=== PATIENT | male | born 1960 | race Caucasian/White ===

== ENCOUNTER 2021-10-16 20:30 | Inpatient (IN) | payer MEDICAID ==
[~2021-10-16] VITALS: Ht 172.7 cm; Wt 174.6 kg
[2021-10-16] MEDS: PROPOFOL 100 ML IV ONE ×2 (20:30→20:43)
--- NOTE | 2021-10-16 20:35 | NUR ---
PT INTUBATED BY Gabriela GARDNER RT AND RN AT BEDSIDE. 24 AT [facility]. VENT SETTINGS FOLLOWED: RR 16 VOLUME 550 100% O2 PEEP 5
[2021-10-16] MEDS ORDERED: PROPOFOL 100 ML ONE ×2 (20:42→23:33)
--- NOTE | 2021-10-16 20:53 | NUR ---
NG TUBE PLACED ON LT NARE 80 CM AT 2048 XRAY CONFIRMED PLACEMENT.
[2021-10-16 20:57] LABS: HEMATOCRIT 47.3 % (36.7-47.1); MEAN CORPUSCULAR HEMOGLOBIN 31.2 uug (23.8-33.4); MEAN CORPUSCULAR VOLUME 103.2 fL (73.0-96.2); PLATELET COUNT (AUTO) 120 K/uL (152-348)
[2021-10-16] MEDS ORDERED: ATOR40TA PO (21:01)
[2021-10-16] MEDS ORDERED: ASPI81TA31 PO (21:01)
[2021-10-16] MEDS ORDERED: GABA800T11 PO (21:01)
[2021-10-16] MEDS ORDERED: BENA40TA8 PO (21:01)
[2021-10-16] MEDS ORDERED: CHOL-35 PO (21:01)
[2021-10-16] MEDS ORDERED: HYDR-3980 PO (21:01)
[2021-10-16 21:07] LABS: ETHANOL < 3 MG/DL (0-0)
--- NOTE | 2021-10-16 21:12 | NUR ---
CENTRAL LINE PLACED BY Gabriela GARDNER
[2021-10-16] MEDS: DOPamine IV DRIP 800 MG/250ML 250 ML IV PRN (21:14)
[2021-10-16] MEDS ORDERED: IV NORMAL SALINE 1000 ML BAG IV ONE (21:15)
[2021-10-16] MEDS ORDERED: levoFLOXacin 750 MG/D5W 150 ML PIGGYBACK IV ONE (21:15)
[2021-10-16] MEDS ORDERED: DOPamine IV DRIP 400 MG/250ML 250 ML ONE ×2 (21:15→23:45)
[2021-10-16 21:20] LABS: CARBON DIOXIDE 25 mmol/L (21-32); CHLORIDE 94 mmol/L (98-107); CREATININE 4.8 mg/dL (0.6-1.3); POTASSIUM 5.8 mmol/L (3.5-5.1); UREA NITROGEN, BLOOD 61 mg/dL (7-18)
--- NOTE | 2021-10-16 21:20 | NUR ---
CRITICAL LAB LACTIC ACID: 7.1 DR DUEÑAS MADE AWARE.
--- NOTE | 2021-10-16 21:22 | NUR ---
CRITICAL LAB GLUCOSE - 598 DR DUEÑAS
[2021-10-16 21:24] LABS: GLUCOSE 598 mg/dL (74-106)
[2021-10-16 21:26] LABS: ALANINE AMINOTRANSFERASE 66 U/L (16-63); ALKALINE PHOSPHATASE 126 U/L (50-136); ASPARTATE AMINOTRANSFERASE 48 U/L (15-37); BILIRUBIN,DIRECT 0.3 mg/dL (0.0-0.2); BILIRUBIN,TOTAL 0.8 mg/dL (0.2-1.0); TOTAL PROTEIN, SERUM 9.4 g/dL (6.4-8.2)
--- NOTE | 2021-10-16 21:32 | NUR ---
ASSISTED PRIMARY RN WITH DIPRIVAN DRIP, DOCUMENTED ON THE IV SPREADSHEET. AT THIS TIME, KEPT PATIENT ON 15 MCG/KG/MIN. BASED ON 380 KG OF WEIGHT. PT'S BP: 131/61. TOLERATING BOTH PROPOFOL AND DOPAMINE DRIP. Addendum: 10/17/21 at 0011 by ANNA 384 lbs/ 174 kg
[2021-10-16] MEDS ORDERED: CALCIUM GLUCONATE 1 GM/10 ML VIAL IV ONE (21:34)
--- NOTE | 2021-10-16 21:35 | NUR ---
RT CALLED TO ER WITH RUN , RESP. DISTRESS, APPROX. 20:30 , PATIENT ON LAURIE BEING AMBU BAG 100%,BY RT , THEN SEDATED BY DR DUEÑAS, AND INTUBATED WITH 7.0 ET.TUBE 24CM LIP LINE, AND PLACED ON RICCI VENT APPROX. 20:45 WITH INITIAL VENT SETTINGS, A/C 16, VT 550ML, FIO2 @ 100%, PEEP5, WITH ABG TO FOLLOW, LOW BP, SUCTIONED WHITISH TINGE SECRETIONS, ALL VENT ALARMS GOOD, VENT PLUGGED INTO RED OUTLET, CT SCAN WITH RT TRANSPORT APPROX. @ 21:45. Mario LACYP Addendum: 10/16/21 at 2139 by OPAL DESAI RT Amended: Links added.
[2021-10-16 21:42] LABS: ACETAMINOPHEN < 2.0 ug/mL (10-30)
[2021-10-16] MEDS ORDERED: INSULIN REGULAR, HUMAN 300 UNIT/3 ML VIAL ONE (21:44)
[2021-10-16] MEDS ORDERED: CALCIUM GLUCONATE IV 1 GM in IV DEXTROSE 5% 50 ML IV ONE (21:45)
[2021-10-16] MEDS ORDERED: INSULIN REGULAR, HUMAN 300 UNIT/3 ML VIAL IV ONE (21:45)
[2021-10-16 21:57] LABS: *BILIRUBIN,URIN 1+ (NEGATIVE); *BLOOD, URINE 1+ (NEGATIVE); *CLARITY,URINE CLOUDY (CLEAR); *COLOR,URINE YELLOW (YELLOW); *KETONES,URINE 1+ (NEGATIVE); *UROBILINOGEN,URINE 0.2 E.U./dl (NORMAL); LEUKOCYTE ESTERASE ,URINE NEGATIVE (NEGATIVE); NITRITE, URINE NEGATIVE (NEGATIVE); UGLUCOSE 1+ (NEGATIVE)
[2021-10-16 22:12] LABS: BACTERIA,URINE FEW /HPF (NONE SEEN); COARSE GRANULAR CASTS,URINE 0-3 /LPF; FATTY CASTS,URINE 0-3 /LPF (NONE SEEN); SQUAMOUS EPITHELIAL CELL,UR MODERATE /HPF (NONE SEEN)
[2021-10-16 22:17] LABS: *AMPHETAMINE, URINE NEGATIVE (NEGATIVE); *CANNABINOID, URINE NEGATIVE (NEGATIVE); *COCCAINE, URINE NEGATIVE (NEGATIVE); *OPIATE, URINE POSITIVE (NEGATIVE); *PHENCYCLIDINE SCREEN,URINE NEGATIVE (NEGATIVE)
[2021-10-16 22:19] LABS: THYROID STIMULATING HORMONE 1.834 mIU/mL (0.358-3.740)
[2021-10-16 22:39] LABS: ABG HCO3 22.3 mmol/L; ABG PCO2 74.4 mmHg (35.0-45.0); ABG PH 7.095 (7.350-7.450); ABG PO2 137.1 mmHg (75.0-100.0); ABG SITE RIGHT RADIAL; ABG TOTAL HEMOGLOBIN 15.2 G/dL (13.5-18.0); COHb 1.6 % (0.5-1.5); MetHb 0.4 % (0.0-1.5); O2Hb 96.3 % (94.0-97.0); VENT MODE VENT - A/C; VT, ABG 550 mL
--- NOTE | 2021-10-16 23:08 | NUR ---
[facility] CALLED FOR PANEL , ABUNDIO DAVIS.
[2021-10-16] MEDS ORDERED: levoFLOXacin 750MG/D5W 150 ML IV ONE (23:09)
--- NOTE | 2021-10-16 23:20 | NUR ---
PT PLACED ON MEDICAL SOFT RESTRAINS DUE TO SEDATIVE DRIPS AND INTUBATION.
[2021-10-16] MEDS ORDERED: PROPOFOL 100 ML IV ONE (23:30)
--- NOTE | 2021-10-16 23:49 | NUR ---
CRITICAL LAB LACTATE 3.7 DR. DUEÑAS MADE AWARE. TRENDING DOWN.
[2021-10-17] VITALS (43 sets, daily range): BP systolic 78–155; BP diastolic 45–77
--- NOTE | 2021-10-17 00:50 | NUR ---
GAVE REPORT TO KRISTIAN MANE.
[2021-10-17] MEDS ORDERED: ONDANSETRON 4 MG/2 ML VIAL IV PRN (01:15)
[2021-10-17] MEDS ORDERED: DEXTROSE 50% 50 ML DISP.SYRIN IV PRN (01:15)
[2021-10-17] MEDS ORDERED: ASPIRIN 300 MG RECTAL SUPP RC ONE (01:15)
[2021-10-17] MEDS ORDERED: REMEDY ESSENTIAL ZINC PASTE 113 GM TP PRN (01:15)
[2021-10-17] MEDS ORDERED: ACETAMINOPHEN 650 MG SUPP.RECT RC PRN (01:15)
--- NOTE | 2021-10-17 01:25 | NUR ---
PT ADMITTED TO CCU, TRANSFTERED WITH RT, ON MONITOR, SR AT THIS TIME. DOPAMINE DRIP AT 7MCG/KG/MIN AND DIPRIVAN DRIP AT 15MCG/KG/MIN. HANDED OVER CARE TO CCU NURSEALHAJI.
--- NOTE | 2021-10-17 01:35 | NUR ---
Pt. admitted to CCU , under care of Dr. MESHA HERNANDEZ Belongs List completed
[2021-10-17] MEDS: IV NS 1000 ML 1,000 ML IV PRN ×2 (02:42→19:32)
[2021-10-17] MEDS ORDERED: HEPARIN SODIUM,PORCINE 5,000 UNITS/ML VIAL IV ONE ×2 (03:15→17:15)
[2021-10-17] MEDS: HEPARIN/D5W DRIP 500 ML IV PRN ×2 (03:24→19:38)
[2021-10-17] MEDS: PROPOFOL 100 ML IV PRN ×9 (03:28→22:41)
--- NOTE | 2021-10-17 05:37 | NUR ---
FIO2 @ 70% , ADJUSTED BY ALHAJI VAZ RT AFTER 0400, SAT 96%.Mario DESAI CELL COVERER Addendum: 10/17/21 at 0538 by OPAL DESAI RT Amended: Links added.
[2021-10-17 05:59] LABS: HEMATOCRIT 39.7 % (36.7-47.1); MEAN CORPUSCULAR HEMOGLOBIN 30.7 uug (23.8-33.4); MEAN CORPUSCULAR VOLUME 94.2 fL (73.0-96.2); PLATELET COUNT (AUTO) 81 K/uL (152-348)
[2021-10-17] MEDS: BLOOD SUGAR DIAGNOSTIC 1 EACH STRIP VI SCH ×4 (05:59→23:34)
[2021-10-17] MEDS: INSULIN REGULAR, HUMAN 300 UNIT/3 ML VIAL SQ PRN ×4 (06:01→23:35)
[2021-10-17 06:18] LABS: CREATININE 3.4 mg/dL (0.6-1.3); MAGNESIUM 2.3 mg/dL (1.8-2.4); PHOSPHOROUS 5.1 mg/dL (2.5-4.9); POTASSIUM 4.7 mmol/L (3.5-5.1)
[2021-10-17 08:19] LABS: ABG BASE EXCESS -3.3 mmol/L; ABG HCO3 20.5 mmol/L; ABG PCO2 33.3 mmHg (35.0-45.0); ABG PH 7.407 (7.350-7.450); ABG PO2 88.6 mmHg (75.0-100.0); ABG SITE LEFT RADIAL; ABG TOTAL HEMOGLOBIN 13.8 G/dL (13.5-18.0); COHb 0.9 % (0.5-1.5); MetHb 0.3 % (0.0-1.5); O2Hb 95.9 % (94.0-97.0); VENT MODE VENT - A/C; VT, ABG 550 mL
[2021-10-17] MEDS: PANTOPRAZOLE SODIUM 40 MG VIAL IV SCH (08:41)
[2021-10-17] MEDS: DOPamine IV DRIP 800 MG/250ML 250 ML IV PRN ×2 (08:57→21:07)
[2021-10-17] MEDS: ASPIRIN 81 MG TAB.CHEW PO SCH (09:59)
--- NOTE | 2021-10-17 20:00 | NUR ---
vented 7.0/24 cm ac20/550/+5peep 70% fio2.tolerating vent settings saturation 97% rr 20. right femoral TLC: HEPARIN DRIP at 1200 units =next aptt 2300 no s/s of bleeding . DOPAMINE drip at 3 mcg/kg/min = hr 75,bp 91/51 Diprivan drip at 40 mcg/kg/min = RR 20,when off sedation patient moved bue and ble ,moved head slow and weak but doesn't follow commands . back on sedation propofol . NORMAL SALINE AT 75 ML/HR . LEFT L NGT -clamp only for medication will placed for net maker consult . f/c to bsd with cloudy darlin in color .
[2021-10-17] MEDS: ATORVASTATIN 40 MG TABLET PO SCH (20:13)
--- NOTE | 2021-10-17 23:10 | NUR ---
aptt =47.4 no changed on heparin drip . remains at 1200 units.next aptt at 0600
[2021-10-18] VITALS (48 sets, daily range): BP systolic 101–126; BP diastolic 50–73
--- NOTE | 2021-10-18 00:08 | NUR ---
PATIENT ON CONT RICCI VENT WITH 7.0 ET/TUBE IN PLACE 24CM LIP LINE, WITH ANCHOR FAST IN PLACE AND ROTATE Q 2 HOURS, SUCTIONED WHITISH TINGE SECRETIONS, AND SUCTION MOUTH WITH YANKAUER, AND ORAL CARE DONE, VENT SETTINGS, A/C 20, 550ML, PEEP 5, FIO2 @ 70%, MOSTLY CONTROLLED VENTILATION, NO VENT CHANGES MADE, CHANGE HME , SUCTION X 3 . ANCHOR FAST MOVE X 6 . D GISELLE LEON Addendum: 10/18/21 at 0013 by OPAL DESAI RT Amended: Links added.
[2021-10-18] MEDS: PROPOFOL 100 ML IV PRN ×12 (00:49→22:55)
--- NOTE | 2021-10-18 04:50 | NUR ---
lab came and am labs collected .
[2021-10-18] MEDS: BLOOD SUGAR DIAGNOSTIC 1 EACH STRIP VI SCH ×4 (05:08→23:39)
[2021-10-18] MEDS: INSULIN REGULAR, HUMAN 300 UNIT/3 ML VIAL SQ PRN ×4 (05:10→23:40)
[2021-10-18 05:29] LABS: HEMATOCRIT 40.8 % (36.7-47.1); MEAN CORPUSCULAR HEMOGLOBIN 30.6 uug (23.8-33.4); MEAN CORPUSCULAR VOLUME 92.9 fL (73.0-96.2); PLATELET COUNT (AUTO) 77 K/uL (152-348)
[2021-10-18 05:43] LABS: BILIRUBIN,DIRECT 0.3 mg/dL (0.0-0.2); BILIRUBIN,TOTAL 0.7 mg/dL (0.2-1.0); CREATININE 1.9 mg/dL (0.6-1.3); MAGNESIUM 2.3 mg/dL (1.8-2.4); PHOSPHOROUS 4.2 mg/dL (2.5-4.9); POTASSIUM 4.3 mmol/L (3.5-5.1); TOTAL PROTEIN, SERUM 7.2 g/dL (6.4-8.2)
--- NOTE | 2021-10-18 05:45 | NUR ---
INCREASE PROPOFOL DRIP TO 50 MCG/KG/MIN patient waking up and reaches for the ETT . BILATERAL SOFT WRIST RESTRAINTS STARTED .
--- NOTE | 2021-10-18 06:00 | NUR ---
fingerstick done and follow insulin sliding scale .
[2021-10-18 06:32] LABS: THYROID STIMULATING HORMONE 0.312 mIU/mL (0.358-3.740)
--- NOTE | 2021-10-18 06:59 | NUR ---
LAKISHA LAWLER DISCONTINUE HEPARIN DRIP AND NORMAL SALINE MAINTENANCE FLUIDS .
[2021-10-18] MEDS: DOPamine IV DRIP 800 MG/250ML 250 ML IV PRN (07:20)
[2021-10-18 07:49] LABS: ABG BASE EXCESS -0.1 mmol/L; ABG HCO3 24.6 mmol/L; ABG PH 7.406 (7.350-7.450); ABG PO2 102.7 mmHg (75.0-100.0); ABG SITE RIGHT RADIAL; COHb 0.7 % (0.5-1.5); MetHb 0.1 % (0.0-1.5); O2Hb 97.2 % (94.0-97.0); VENT MODE VENT - A/C; VT, ABG 550 mL
[2021-10-18] MEDS: ASPIRIN 81 MG TAB.CHEW PO SCH (08:03)
[2021-10-18] MEDS: PANTOPRAZOLE SODIUM 40 MG VIAL IV SCH (08:03)
--- NOTE | 2021-10-18 17:10 | NUR ---
PT REMAINS INTUBATED ON CMV. DURING SHIFT, FIO2 TITRATED TO 60%. PT IS TOLERATING VENT SETTINGS WELL, NO RESP. DISTRESS NOTED. ETT REPOSITIONED Q2. SUCTION PRN. WILL CONTINUE TO MONITOR.
--- NOTE | 2021-10-18 20:00 | NUR ---
rounds made patient in bed intubated vent setting 7.0/24 cm ac20/550/+5 fio2 60% . tolerating vent setting rr 20 saturation 98%.
[2021-10-18] MEDS: ATORVASTATIN 40 MG TABLET PO SCH (20:10)
[2021-10-18] MEDS ORDERED: MEROPENEM 500 MG in IV NORMAL SALINE 50 ML IV SCH (21:30)
[2021-10-18] MEDS ORDERED: MEROPENEM 500 MG in IV NORMAL SALINE 50 ML IV ONE (21:45)
[2021-10-18] MEDS ORDERED: MEROPENEM 500MG/NS 50ML PB ***ER PYXIS ONLY IV ONE (22:26)
[2021-10-18] MEDS: IV NORMAL SALINE 250 ML IV PRN (23:29)
[2021-10-19] VITALS (72 sets, daily range): BP systolic 101–164; BP diastolic 56–96
--- NOTE | 2021-10-19 | NUR ---
fingerstick done and follow iss .
[2021-10-19] MEDS: PROPOFOL 100 ML IV PRN ×13 (00:50→22:50)
--- NOTE | 2021-10-19 04:30 | NUR ---
am labs collected by catheter builder. xray came for portable chest .
--- NOTE | 2021-10-19 04:30 | NUR ---
am care done ,bath patient changed soiled linens and gown . perianal care done and Huitron care done .suction patient via mouth and via ett . turned and reposition . hob up .
--- NOTE | 2021-10-19 05:00 | NUR ---
discontinue bilateral wrist restraints . patient moderately sedated on propofol .
[2021-10-19] MEDS: BLOOD SUGAR DIAGNOSTIC 1 EACH STRIP VI SCH ×4 (05:14→23:31)
[2021-10-19] MEDS: INSULIN REGULAR, HUMAN 300 UNIT/3 ML VIAL SQ PRN ×4 (05:15→23:32)
[2021-10-19 05:21] LABS: HEMATOCRIT 41.7 % (36.7-47.1); MEAN CORPUSCULAR HEMOGLOBIN 30.8 uug (23.8-33.4); MEAN CORPUSCULAR VOLUME 92.8 fL (73.0-96.2); PLATELET COUNT (AUTO) 75 K/uL (152-348)
[2021-10-19 05:27] LABS: CREATININE 1.2 mg/dL (0.6-1.3); PHOSPHOROUS 3.7 mg/dL (2.5-4.9); POTASSIUM 4.4 mmol/L (3.5-5.1)
[2021-10-19 08:14] LABS: ABG HCO3 24.2 mmol/L; ABG PH 7.422 (7.350-7.450); ABG PO2 82.8 mmHg (75.0-100.0); ABG SITE RIGHT RADIAL; ABG TOTAL HEMOGLOBIN 14.5 G/dL (13.5-18.0); COHb 0.9 % (0.5-1.5); MetHb 0.1 % (0.0-1.5); O2Hb 95.5 % (94.0-97.0); VENT MODE VENT - A/C; VT, ABG 550 mL
[2021-10-19] MEDS: MEROPENEM 1 G in IV NORMAL SALINE 100 ML IV SCH ×3 (08:17→23:22)
[2021-10-19] MEDS: PANTOPRAZOLE SODIUM 40 MG VIAL IV SCH (08:18)
[2021-10-19] MEDS: ASPIRIN 81 MG TAB.CHEW PO SCH (08:18)
[2021-10-19] MEDS: DOPamine IV DRIP 800 MG/250ML 250 ML IV PRN (08:52)
[2021-10-19] MEDS: MORPHINE SULFATE 2 MG/1 ML DISP.SYRIN IV PRN (10:18)
[2021-10-19] MEDS ORDERED: VITAL AF 1.2 1,000 ML LIQUID GT PRN (19:30)
--- NOTE | 2021-10-19 19:45 | NUR ---
ROUNDS MADE PATIENT IN BED VENTED ETT 7.0/24 SETTINGS AC 16/550/+5 PEEP FIO2 60%,SUCTION VIA MOUTH AND VIA ETT WITH MODERATE SECRETION OWENS ,BLOOD TINGED IN COLOR . ORAL CARE DONE . RIGHT FEMORAL 3 LUMEN CENTRAL LINE .ON DOPAMINE DRIP ,PROPOFOL DRIP . SEE SPREADSHEET . GARCIA TO BSD WITH GOOD URINARY OUTPUT .
[2021-10-19] MEDS: ATORVASTATIN 40 MG TABLET PO SCH (20:05)
--- NOTE | 2021-10-19 21:00 | NUR ---
DUE MEDICATION GIVEN VIA NGT FLUSHED NGT TUBE HOB.
[2021-10-19] MEDS: IV NORMAL SALINE 250 ML IV PRN (23:22)
[2021-10-20] VITALS (38 sets, daily range): BP systolic 90–171; BP diastolic 55–99
--- NOTE | 2021-10-20 | NUR ---
fingerstick done and follow insulin sliding scale .
[2021-10-20] MEDS: PROPOFOL 100 ML IV PRN ×13 (00:16→22:37)
[2021-10-20] MEDS: MORPHINE SULFATE 2 MG/1 ML DISP.SYRIN IV PRN ×2 (00:26→05:18)
--- NOTE | 2021-10-20 04:00 | NUR ---
am care done ,bath patient ,Huitron care done .changed soiled linens and gown . turned and reposition with the help of xray personnel Paddy Luis cna ,Luis respiratory therapist and 2 RNS ALHAJI and DOUGLAS BARNES .
--- NOTE | 2021-10-20 04:15 | NUR ---
patient had a large bowel movement soft brownish in color .
[2021-10-20] MEDS: BLOOD SUGAR DIAGNOSTIC 1 EACH STRIP VI SCH ×4 (05:17→23:27)
[2021-10-20] MEDS: INSULIN REGULAR, HUMAN 300 UNIT/3 ML VIAL SQ PRN ×4 (05:18→23:28)
--- NOTE | 2021-10-20 05:18 | NUR ---
morphine prn given see emar patient at times noted to be coughing and breathing over the vent settings . on high dose of propofol see spreadsheet .
[2021-10-20 05:35] LABS: MEAN CORPUSCULAR HEMOGLOBIN 30.5 uug (23.8-33.4); MEAN CORPUSCULAR VOLUME 93.4 fL (73.0-96.2); PLATELET COUNT (AUTO) 82 K/uL (152-348)
[2021-10-20 05:40] LABS: CREATININE 1.1 mg/dL (0.6-1.3); MAGNESIUM 2.1 mg/dL (1.8-2.4); PHOSPHOROUS 4.2 mg/dL (2.5-4.9); POTASSIUM 4.5 mmol/L (3.5-5.1)
[2021-10-20] MEDS: MEROPENEM 1 G in IV NORMAL SALINE 100 ML IV SCH (07:33)
[2021-10-20] MEDS: PANTOPRAZOLE SODIUM 40 MG VIAL IV SCH (08:08)
[2021-10-20] MEDS: ASPIRIN 81 MG TAB.CHEW PO SCH (08:09)
--- NOTE | 2021-10-20 08:45 | NUR ---
RT PT WAS PLACE ON CPAP AT THIS TIME WILL MONITOR PT WILL DO ABG IN 1 HR. RN AWARE.
[2021-10-20 09:43] LABS: ABG BASE EXCESS -0.5 mmol/L; ABG HCO3 27.1 mmol/L; ABG PCO2 56.3 mmHg (35.0-45.0); ABG PO2 69.6 mmHg (75.0-100.0); ABG SITE RIGHT RADIAL; ABG TOTAL HEMOGLOBIN 15.1 G/dL (13.5-18.0); COHb 0.7 % (0.5-1.5); MetHb 0.3 % (0.0-1.5); O2Hb 91.3 % (94.0-97.0); VENT MODE VENT - CPAP
--- NOTE | 2021-10-20 10:00 | NUR ---
RT PT FAILED WEANING AT THIS TIME DUE TO ABG RESULTS . RESULTS GIVEN TO MD PER MD PLACE PT BACK ON AC. WT WILL CONTINUE TO MONITOR PT.
[2021-10-20] MEDS: ATORVASTATIN 40 MG TABLET PO SCH (22:37)
[2021-10-21] VITALS (24 sets, daily range): BP systolic 101–146; BP diastolic 62–91
[2021-10-21] MEDS: PROPOFOL 100 ML IV PRN ×11 (01:23→23:18)
[2021-10-21 05:16] LABS: HEMATOCRIT 39.4 % (36.7-47.1); MEAN CORPUSCULAR HEMOGLOBIN 30.5 uug (23.8-33.4); MEAN CORPUSCULAR VOLUME 93.5 fL (73.0-96.2); PLATELET COUNT (AUTO) 75 K/uL (152-348)
[2021-10-21 05:26] LABS: CREATININE 1.2 mg/dL (0.6-1.3); PHOSPHOROUS 3.5 mg/dL (2.5-4.9); POTASSIUM 4.2 mmol/L (3.5-5.1); TOTAL PROTEIN, SERUM 7.1 g/dL (6.4-8.2)
[2021-10-21] MEDS: INSULIN REGULAR, HUMAN 300 UNIT/3 ML VIAL SQ PRN ×3 (05:44→17:29)
[2021-10-21] MEDS: BLOOD SUGAR DIAGNOSTIC 1 EACH STRIP VI SCH ×3 (05:46→17:26)
--- NOTE | 2021-10-21 07:10 | NUR ---
Received pt. on ventilator A/C ETT 7.0 24LL of 16, tv 550, Peep +5, and FIO2 60%. On sedatives propofol running at 40mcg/kg/min. Neuro-reed BERTHA an withdrawing to light painful stimuli. NG-T clamped. Patient received with BUE soft restrains adjusted to wrist area but not secured to bed. Restrains removed at this time. TLS to right femoral area patent. Huitron to gravity with darkish slightly sedimented urine noted.
--- NOTE | 2021-10-21 07:15 | NUR ---
Upon removal of BUE wrist restrains a large blister noted to left wrist. picture taken area cleaned with soap and water and left open to air. BUE elevated above heart level.
--- NOTE | 2021-10-21 07:30 | NUR ---
At this time with propofol down to 20mcg/kg/min CPAP and weaning parameters initiated, patient already noted to be in labor breathing, with use of accessory muscles. Patient coached to take deep breaths, with RT at bedside. pt. only lasted about 15-20 min. As noted, unable to get large volume tachypneic, with labor breathing. Saturation of 94% with heart rate in the 98-100, sbp within desired limits. After failing weaning attempts pt. placed back on A/C mode.
--- NOTE | 2021-10-21 07:45 | NUR ---
SPONTANEOUS BREATHING TRIALS ATTEMPTED. @0730 VENT CHANGES MADE PER ORDER, CPAP 5, PSV 10, 60% FIO2. PT IS ABLE TO OPEN EYES BUT UNABLE TO FOLLOW COMMANDS. PT ENCOURAGED TO TAKE SLOW DEEP BREATHS. VOLUMES BETWEEN 200-300'S OBSERVED, TACHYPNEA, INCREASED WOB, ACCESSORY MUSCLES BEING USED NOTED. ABG DRAWN ON CPAP. PT PLACED BACK ON PREVIOUS A/C SETTINGS, RN NOTIFIED. WILL CONTINUE TO MONITOR AND FOLLOW CURRENT RESP. TREATMENTS ORDERED.
[2021-10-21 08:16] LABS: ABG BASE EXCESS 0.8 mmol/L; ABG HCO3 27.3 mmol/L; ABG PCO2 51.4 mmHg (35.0-45.0); ABG PH 7.343 (7.350-7.450); ABG PO2 76.6 mmHg (75.0-100.0); ABG SITE RIGHT RADIAL; ABG TOTAL HEMOGLOBIN 13.7 G/dL (13.5-18.0); COHb 1.1 % (0.5-1.5); MetHb 0.3 % (0.0-1.5); O2Hb 93.7 % (94.0-97.0); VENT MODE VENT - CPAP
[2021-10-21] MEDS ORDERED: ALBUMIN HUMAN 25% 100 ML IV SCH (09:00)
--- NOTE | 2021-10-21 09:00 | NUR ---
Pulmonary services Dr. Mart in the unit to examine pt. report given, and orders to continue with care plan received.
--- NOTE | 2021-10-21 09:00 | NUR ---
FIO2 decreased down to 50%.
[2021-10-21] MEDS: PANTOPRAZOLE ORAL SUSPENSION 40 MG SUSPDR.PKT GT SCH (09:06)
[2021-10-21] MEDS: ASPIRIN 81 MG TAB.CHEW PO SCH (09:06)
--- NOTE | 2021-10-21 09:30 | NUR ---
Patient seen by manager talent acquisition Dr. Jimenez report given and orders to continue with care plan received and implemented.
[2021-10-21] MEDS: ALBUMIN HUMAN 25% 100 ML IV SCH ×3 (09:48→19:42)
[2021-10-21] MEDS: FUROSEMIDE 40 MG/4 ML VIAL IV SCH ×2 (11:10→23:03)
[2021-10-21] MEDS ORDERED: VITAL AF 1.2 1,000 ML LIQUID GT PRN (14:00)
[2021-10-21] MEDS: PROTEIN SUPPLEMENT (PROSTAT) 30 ML LIQUID PO SCH (17:18)
--- NOTE | 2021-10-21 17:20 | NUR ---
PT REMAINS INTUBATED ON CMV, FIO2 TITRATED TO 30% DURING SHIFT. PT IS TOLERATING VENT SETTINGS WELL, SPO2 AND RESPIRATIONS WNL. NO RESP. DISTRESS NOTED. ETT REPOSITIONED Q2. SUCTION PRN. WILL CONTINUE TO MONITOR AND FOLLOW RESP. TREATMENTS ORDERED.
--- NOTE | 2021-10-21 18:05 | NUR ---
Left pt. on ventilator A/C mode same setting with FIO2 at 30% successfully titrated by RT. Adequately sedated propofol running at 50mcg/kg/min., but withdraws from painful stimuli and BERTHA. No tachypnea or labor breathing, with saturation above 95%. Tolerating diet well via Ng-T at 20ml/hr with no residuals, no n/v/or diarrhea. Huitron to gravity. IV line patent. patient remained afebrile post tylenol this morning. Will endorse for continuity of care.
[2021-10-21] MEDS: ATORVASTATIN 40 MG TABLET PO SCH (19:31)
--- NOTE | 2021-10-21 21:30 | NUR ---
viviana ID in the unit to see patients updated.
[2021-10-22] VITALS (24 sets, daily range): BP systolic 113–148; BP diastolic 65–83
[2021-10-22] MEDS: ACETAMINOPHEN 650 MG/20.3 ML LIQUID UDC GT PRN (00:04)
[2021-10-22] MEDS: BLOOD SUGAR DIAGNOSTIC 1 EACH STRIP VI SCH ×5 (00:05→23:39)
[2021-10-22] MEDS: INSULIN REGULAR, HUMAN 300 UNIT/3 ML VIAL SQ PRN ×5 (00:06→23:40)
[2021-10-22] MEDS: PROPOFOL 100 ML IV PRN ×11 (01:22→23:39)
--- NOTE | 2021-10-22 03:15 | NUR ---
no albumin left in pyxis. fertilizer supervisor informed pending delivery of albumin
[2021-10-22] MEDS: ALBUMIN HUMAN 25% 100 ML IV SCH (03:32)
[2021-10-22] MEDS ORDERED: ALBUMIN HUMAN 25% 50 ML ONE ×2 (03:38)
[2021-10-22 05:42] LABS: HEMATOCRIT 37.5 % (36.7-47.1); MEAN CORPUSCULAR HEMOGLOBIN 30.4 uug (23.8-33.4); MEAN CORPUSCULAR VOLUME 93.3 fL (73.0-96.2); PLATELET COUNT (AUTO) 80 K/uL (152-348)
[2021-10-22 05:59] LABS: CREATININE 1.2 mg/dL (0.6-1.3); MAGNESIUM 1.8 mg/dL (1.8-2.4); PHOSPHOROUS 3.6 mg/dL (2.5-4.9); POTASSIUM 3.8 mmol/L (3.5-5.1)
--- NOTE | 2021-10-22 06:27 | NUR ---
patient stable throughout night. continued lasix and albumin as ordered. patient diuresed well and patient had one large BM. tolerating tube feeds increased rate to 30 ml/hr.
--- NOTE | 2021-10-22 06:33 | NUR ---
plan for weaning will decrease sedation at 0700.
[2021-10-22] MEDS ORDERED: POTASSIUM CHLORIDE 20 MEQ POWDER PACKET GT ONE (07:30)
--- NOTE | 2021-10-22 07:30 | NUR ---
Pt placed on CPAP Trial and lori well. Will continue to monitor. RN aware. 0820 Cpap Trial failed. ABG done. And placed back onto settings of AC 16, Vt 550, PEEP +5, 35% Will continue to monitor
[2021-10-22] MEDS: PROTEIN SUPPLEMENT (PROSTAT) 30 ML LIQUID PO SCH ×3 (07:32→17:01)
[2021-10-22] MEDS: MAGNESIUM SULFATE/D5W 100 ML IV SCH ×2 (07:47→08:31)
[2021-10-22] MEDS: ASPIRIN 81 MG TAB.CHEW PO SCH (08:01)
[2021-10-22] MEDS: PANTOPRAZOLE ORAL SUSPENSION 40 MG SUSPDR.PKT GT SCH (08:01)
[2021-10-22] MEDS: FUROSEMIDE 40 MG/4 ML VIAL IV SCH ×2 (08:31→20:48)
[2021-10-22 08:36] LABS: ABG BASE EXCESS 1.6 mmol/L; ABG HCO3 28.9 mmol/L; ABG PCO2 57.2 mmHg (35.0-45.0); ABG PH 7.322 (7.350-7.450); ABG PO2 45.5 mmHg (75.0-100.0); ABG SITE LEFT RADIAL; ABG TOTAL HEMOGLOBIN 14.3 G/dL (13.5-18.0); COHb 0.8 % (0.5-1.5); CPAP,BG 12 cmH20; MetHb 0.3 % (0.0-1.5); O2Hb 76.5 % (94.0-97.0); VENT MODE CPAP
--- NOTE | 2021-10-22 19:00 | NUR ---
received patient sedated , morbidly obese , propofol at 50 mcg , vent setting , ac 16 tv 550 p 5 35% fio2 , ngt tf vital af 30 ml /hr , placement , no residual noted , blister , left hand noted , central line right femoral intact , no fever, sr , hr 79 , rmc013 /69 , 94 % 16 rr
--- NOTE | 2021-10-22 20:00 | NUR ---
tf decreased to 20 ml /hr goal rate as per current order
[2021-10-22] MEDS: ATORVASTATIN 40 MG TABLET PO SCH (20:48)
[2021-10-22] MEDS: INSULIN GLARGINE,HUM 300 UNITS/3 ML CARTRIDGE SQ SCH (21:04)
[2021-10-23] VITALS (24 sets, daily range): BP systolic 135–176; BP diastolic 75–111
--- NOTE | 2021-10-23 00:09 | NUR ---
PATIENT ON CONT RICCI VENT WITH 7.0ET/TUBE IN PLACE , 24CM LIP LINE, MOVE ANCHOR FAST Q2 HOURS, SUCTIONED LIGHT PALE YELL TINGE SECRETIONS, AND SUCTION MOUTH WITH OMAR FIGUEROA, PT ASSIST AT TIMES, VENT SETTINGS, A/C 16, 550ML, PEEP5, FIO2 @ 30%, NO VENT CHANGES MADE, ALL VENT ALARMS GOOD, VENT PLUGGED INTO RED WALL OUT LETMickey LACYP Addendum: 10/23/21 at 0012 by OPAL DESAI RT Amended: Links added.
[2021-10-23] MEDS: PROPOFOL 100 ML IV PRN ×3 (01:23→07:31)
[2021-10-23 05:07] LABS: HEMATOCRIT 39.9 % (36.7-47.1); MEAN CORPUSCULAR HEMOGLOBIN 30.8 uug (23.8-33.4); MEAN CORPUSCULAR VOLUME 91.9 fL (73.0-96.2); PLATELET COUNT (AUTO) 88 K/uL (152-348)
[2021-10-23 05:42] LABS: BILIRUBIN,DIRECT 0.7 mg/dL (0.0-0.2); BILIRUBIN,TOTAL 1.3 mg/dL (0.2-1.0); CREATININE 1.2 mg/dL (0.6-1.3); MAGNESIUM 2.1 mg/dL (1.8-2.4); PHOSPHOROUS 3.2 mg/dL (2.5-4.9); POTASSIUM 3.8 mmol/L (3.5-5.1); TOTAL PROTEIN, SERUM 8.2 g/dL (6.4-8.2)
--- NOTE | 2021-10-23 06:44 | NUR ---
propofol at 15 mcg , for cpap trial this morning , same vent settings , moderate secretion suctioned orally , blisters left hand and some bruising and light scratches noted on left hand and arm , some bruising noted on medial upper back , central line right femoral and arias intact
[2021-10-23] MEDS: BLOOD SUGAR DIAGNOSTIC 1 EACH STRIP VI SCH ×4 (06:52→23:30)
[2021-10-23] MEDS: INSULIN REGULAR, HUMAN 300 UNIT/3 ML VIAL SQ PRN ×4 (06:53→23:30)
--- NOTE | 2021-10-23 07:00 | NUR ---
Received pt. on A/C of 16, TV550, Peep+5, and FIO2 35%. ETT 7.5, LL24. Patient lightly sedated with propofol running at 15mcg/kg/min,. at this time lowered to 10mcg/kg/min in preparation for CPAP trial at 0800. Hemodynamically stable with sbp wnl. NG-T in place, arias to gravity. IV line patent. Will continue to monitor.
--- NOTE | 2021-10-23 08:00 | NUR ---
Propofol down to 10mcg/kg/min and CPAP trial started PSV= 12, Brandan +5, and FIO2 35%. patient awake opening eyes spontaneously. RR in the low 30's. Will continue to monitor
[2021-10-23] MEDS: ASPIRIN 81 MG TAB.CHEW PO SCH (08:49)
[2021-10-23] MEDS: FUROSEMIDE 40 MG/4 ML VIAL IV SCH ×2 (08:49→20:15)
[2021-10-23] MEDS: PANTOPRAZOLE ORAL SUSPENSION 40 MG SUSPDR.PKT GT SCH (08:49)
[2021-10-23] MEDS: PROTEIN SUPPLEMENT (PROSTAT) 30 ML LIQUID PO SCH ×3 (08:50→17:34)
[2021-10-23 09:05] LABS: ABG BASE EXCESS 4.3 mmol/L; ABG HCO3 29.8 mmol/L; ABG PCO2 47.6 mmHg (35.0-45.0); ABG PH 7.415 (7.350-7.450); ABG PO2 62.5 mmHg (75.0-100.0); ABG SITE LEFT RADIAL; ABG TOTAL HEMOGLOBIN 14.9 G/dL (13.5-18.0); COHb 1.4 % (0.5-1.5); MetHb 0.2 % (0.0-1.5); O2Hb 89.9 % (94.0-97.0); VENT MODE VENT - CPAP
--- NOTE | 2021-10-23 09:30 | NUR ---
Patient seen by social security assessor Dr. Mart report given and after assessing pt. orders to extubated with stand by bipap and orders to reintubate pt. if needed it received.
[2021-10-23] MEDS ORDERED: DC PROPOFOL ONCE EXTUBATED XX PRN (10:00)
--- NOTE | 2021-10-23 10:39 | NUR ---
RT at bedside and at this time pt. extubated, and placed on 4L. NC. low sinus tachycardia 106, sbp of 177/138. patient noted to be snoring with saturation of 93-94%. RR in the upper 30's. will continue to monitor.
--- NOTE | 2021-10-23 11:10 | NUR ---
Patient with saturation in the low 80's. drowsy, and unable to cough up secretions, pulmonary toileting rendered by RT. Rahul who remains at bedside. saturation remained in the low 80's. At this time pt. placed on BIPAP 15/5 Rate of 16 and FIO2 of 50% and titrated down to 40%.,as pt. tolerated.
[2021-10-23] MEDS: MORPHINE SULFATE 2 MG/1 ML DISP.SYRIN IV PRN ×2 (13:59→23:54)
[2021-10-23] MEDS: VITAL AF 1.2 1,000 ML LIQUID GT PRN (17:41)
--- NOTE | 2021-10-23 19:00 | NUR ---
Received report. Patient is alert, awake, open eyes spontaneously. NAD. Simple mask @8LPM, O2 sat 96%. ST on the monitor, 103bpm. NG TF Vital AF @30mls/hr, no gastric residual noted. R femoral TLC heplock. Huitron catheter draining well to gravity. Will continue to monitor closely.
[2021-10-23] MEDS: ATORVASTATIN 40 MG TABLET PO SCH (20:15)
[2021-10-23] MEDS: INSULIN GLARGINE,HUM 300 UNITS/3 ML CARTRIDGE SQ SCH (20:28)
--- NOTE | 2021-10-23 21:00 | NUR ---
Placed on Bipap c/o RT Andrey, tolerating well. NAD.
--- NOTE | 2021-10-23 21:00 | NUR ---
Pt now placed on BIPAP settings of IPAP 15, EPAP 5, set resp. rate 16 and FIO2-40%. No resp. distress noted. Pt appears to be tolerating BIPAP settings well. V-60 alarm parameters have been checked and remain audible. BVM is at bedside. Pt to be monitored throughout the duration of the shift. (Pt was previously on 8LSM).
[2021-10-23] MEDS: hydrALAZINE HCL 20 MG/1 ML VIAL IV PRN (21:15)
[2021-10-24] VITALS (24 sets, daily range): BP systolic 111–161; BP diastolic 59–100
--- NOTE | 2021-10-24 00:29 | NUR ---
Patient appears to be restless on bipap machine, facial grimacing noted, bipap facemask comes out as patient moves head from side to side. Repositioned bipap facemask. JT=630, JZ=066/111, Morphine 2mg given as ordered. Will continue to monitor closely.
[2021-10-24 05:25] LABS: HEMATOCRIT 46.3 % (36.7-47.1); MEAN CORPUSCULAR HEMOGLOBIN 30.1 uug (23.8-33.4); MEAN CORPUSCULAR VOLUME 91.8 fL (73.0-96.2); PLATELET COUNT (AUTO) 104 K/uL (152-348)
[2021-10-24 05:31] LABS: ABG BASE EXCESS 7.1 mmol/L; ABG PCO2 45.4 mmHg (35.0-45.0); ABG PH 7.466 (7.350-7.450); ABG PO2 89.7 mmHg (75.0-100.0); ABG SITE LEFT RADIAL; ABG TOTAL HEMOGLOBIN 16.3 G/dL (13.5-18.0); COHb 1.2 % (0.5-1.5); MetHb 0.3 % (0.0-1.5); O2Hb 95.9 % (94.0-97.0); VENT MODE BIPAP 15/5
[2021-10-24 05:34] LABS: CREATININE 1.3 mg/dL (0.6-1.3); MAGNESIUM 1.8 mg/dL (1.8-2.4); PHOSPHOROUS 3.1 mg/dL (2.5-4.9); POTASSIUM 3.4 mmol/L (3.5-5.1)
[2021-10-24] MEDS: BLOOD SUGAR DIAGNOSTIC 1 EACH STRIP VI SCH ×3 (05:44→17:21)
[2021-10-24] MEDS: INSULIN REGULAR, HUMAN 300 UNIT/3 ML VIAL SQ PRN ×3 (05:45→17:22)
--- NOTE | 2021-10-24 06:20 | NUR ---
Pt placed back on 8LSM. No resp. distress noted. RN SM aware and notified.
--- NOTE | 2021-10-24 06:23 | NUR ---
Bipap off and placed on simple mask @8LPM c/o RT Andrey, O2 sat 98%.
--- NOTE | 2021-10-24 06:37 | NUR ---
Left patient awake, NAD, VSS, on simple mask @8LPM, O2 sat 100%. ST on the monitor, 100bpm. NG TF Vital AF @50mls/hr, off [id number]. R femoral TLC heplock. Huitron catheter draining well to gravity. Endorsed.
[2021-10-24] MEDS ORDERED: POTASSIUM CHLORIDE 20 MEQ POWDER PACKET GT ONE (07:45)
[2021-10-24] MEDS: VITAL AF 1.2 1,000 ML LIQUID GT PRN ×2 (08:00→10:04)
[2021-10-24] MEDS: ASPIRIN 81 MG TAB.CHEW PO SCH (08:23)
[2021-10-24] MEDS: FUROSEMIDE 20 MG/2 ML VIAL IVP SCH ×2 (08:23→20:23)
[2021-10-24] MEDS: PANTOPRAZOLE ORAL SUSPENSION 40 MG SUSPDR.PKT GT SCH (08:24)
[2021-10-24] MEDS: POTASSIUM CHLORIDE 50 ML IV SCH ×2 (08:24→09:27)
[2021-10-24] MEDS: PROTEIN SUPPLEMENT (PROSTAT) 30 ML LIQUID PO SCH ×3 (08:24→16:19)
[2021-10-24] MEDS: METOPROLOL TARTRATE 50 MG TABLET PO SCH ×2 (08:25→20:23)
[2021-10-24] MEDS ORDERED: FUROSEMIDE 40 MG/4 ML VIAL IV SCH (09:00)
[2021-10-24] MEDS: ALBUTEROL SULFATE 2.5 MG/ 0.5 ML NEBU NEB SCH ×5 (11:27→22:35)
[2021-10-24] MEDS: IPRATROPIUM BROMIDE 0.5 MG/2.5 ML NEBU NEB SCH ×4 (11:42→22:35)
[2021-10-24] MEDS: ACETYLCYSTEINE 20% 800 MG/4 ML VIAL NEB SCH ×2 (15:38→22:35)
[2021-10-24] MEDS: ATORVASTATIN 40 MG TABLET PO SCH (20:22)
[2021-10-24] MEDS ORDERED: INSULIN GLARGINE,HUM 300 UNITS/3 ML CARTRIDGE SQ SCH (21:00)
--- NOTE | 2021-10-24 21:45 | NUR ---
Received pt on N/C at 4LPM and due to MD order placed him back on BiPAP at [facility] with the following settings of I-15, E-5, PS-10, RR-16, FIO2-40%. Large full face mask adjusted for pt comfort. Present settings pt tolerated well. RN Roberto aware. Alarms on and audible.
[2021-10-25] VITALS (20 sets, daily range): BP systolic 94–178; BP diastolic 38–93
[2021-10-25] MEDS: BLOOD SUGAR DIAGNOSTIC 1 EACH STRIP VI SCH ×4 (00:09→17:22)
[2021-10-25] MEDS: INSULIN REGULAR, HUMAN 300 UNIT/3 ML VIAL SQ PRN ×4 (00:11→17:25)
--- NOTE | 2021-10-25 05:12 | NUR ---
Pt off BiPAP and placed on 4LPM N/C. RN Roberto aware.
[2021-10-25 05:36] LABS: HEMATOCRIT 44.2 % (36.7-47.1); MEAN CORPUSCULAR HEMOGLOBIN 30.4 uug (23.8-33.4); MEAN CORPUSCULAR VOLUME 92.3 fL (73.0-96.2); PLATELET COUNT (AUTO) 112 K/uL (152-348)
[2021-10-25 05:45] LABS: CREATININE 1.5 mg/dL (0.6-1.3); PHOSPHOROUS 3.9 mg/dL (2.5-4.9); POTASSIUM 3.7 mmol/L (3.5-5.1)
[2021-10-25] MEDS: IPRATROPIUM BROMIDE 0.5 MG/2.5 ML NEBU NEB SCH ×4 (07:46→21:54)
[2021-10-25] MEDS: ALBUTEROL SULFATE 2.5 MG/ 0.5 ML NEBU NEB SCH ×4 (07:46→21:55)
[2021-10-25] MEDS: ACETYLCYSTEINE 20% 800 MG/4 ML VIAL NEB SCH ×2 (07:47→15:05)
[2021-10-25 08:00] LABS: ABG BASE EXCESS 5.1 mmol/L; ABG HCO3 33.4 mmol/L; ABG PH 7.329 (7.350-7.450); ABG PO2 60.2 mmHg (75.0-100.0); ABG SITE RIGHT RADIAL; ABG TOTAL HEMOGLOBIN 15.7 G/dL (13.5-18.0); COHb 1.1 % (0.5-1.5); MetHb 0.3 % (0.0-1.5); O2Hb 85.6 % (94.0-97.0); VENT MODE Nasal Cannula
--- NOTE | 2021-10-25 08:00 | NUR ---
received pt in bed resting on 4L NC. Pt confused, pt becomes sinus tachy on agitation. pt has thick begum mucous, ABGs drawn this morning. Pt has NG tube in place running vital Af at 55, goal of 65. Huitron in place, draining darlin urine, reports of 1 BM last night. IV access on right femoral triple lumen.
--- NOTE | 2021-10-25 08:15 | NUR ---
pt placed on bipap, will continue to monitor.
[2021-10-25] MEDS: PROTEIN SUPPLEMENT (PROSTAT) 30 ML LIQUID PO SCH ×3 (08:58→17:19)
[2021-10-25] MEDS: ASPIRIN 81 MG TAB.CHEW PO SCH (08:59)
[2021-10-25] MEDS: PANTOPRAZOLE ORAL SUSPENSION 40 MG SUSPDR.PKT GT SCH (09:00)
[2021-10-25] MEDS: METOPROLOL TARTRATE 50 MG TABLET PO SCH ×2 (09:00→20:25)
[2021-10-25] MEDS: VITAL AF 1.2 1,000 ML LIQUID GT PRN (09:01)
[2021-10-25] MEDS: IV NORMAL SALINE 250 ML IV PRN (10:54)
[2021-10-25] MEDS: NUTRISOURCE FIBER 4 GM PACKET GT SCH (17:19)
--- NOTE | 2021-10-25 19:00 | NUR ---
received patient awake , restless , family member at bedside , o2 nc 4 l , ngt , placement checked , no residual , vital af running at 55 ml/hr , right femoral centra line intact , arias intact , no fever , blister on the left hand already popped , covered with mepilex rr 28 sbp 16/38 , hr 96 , o2 saturation 96 %
[2021-10-25] MEDS: ATORVASTATIN 40 MG TABLET PO SCH (20:25)
[2021-10-25] MEDS: ENOXAPARIN SODIUM 40 MG/0.4 ML DISP.SYRIN SQ SCH (20:26)
[2021-10-25] MEDS ORDERED: INSULIN GLARGINE,HUM 300 UNITS/3 ML CARTRIDGE SQ SCH (21:00)
[2021-10-25] MEDS: MORPHINE SULFATE 2 MG/1 ML DISP.SYRIN IV PRN (21:19)
[2021-10-26] VITALS (23 sets, daily range): BP systolic 116–172; BP diastolic 67–102
[2021-10-26] MEDS: ACETYLCYSTEINE 20% 800 MG/4 ML VIAL NEB SCH ×3 (00:01→15:21)
[2021-10-26] MEDS: IPRATROPIUM BROMIDE 0.5 MG/2.5 ML NEBU NEB SCH ×5 (00:03→15:21)
[2021-10-26] MEDS: ALBUTEROL SULFATE 2.5 MG/ 0.5 ML NEBU NEB SCH ×5 (00:03→15:21)
[2021-10-26] MEDS: BLOOD SUGAR DIAGNOSTIC 1 EACH STRIP VI SCH ×5 (00:22→23:56)
[2021-10-26] MEDS: INSULIN REGULAR, HUMAN 300 UNIT/3 ML VIAL SQ PRN ×5 (00:23→23:57)
--- NOTE | 2021-10-26 00:41 | NUR ---
PATIENT REMAINS ON O2 @ 4L/M NC , WITH S/B BI/PAP PRN, PT SEMI AWAKE .DOMINATES MOVING RIGHT ARM AND RIGHT LEG, HELP NURSING LIFT PATIENT, NEB INLINE RXS, SUCTION MOUTH WITH REYNALDO FIGUEROA BEFORE 0700. Mario DESAI RCP Addendum: 10/26/21 at 0043 by OPAL DESAI RT Amended: Links added.
[2021-10-26] MEDS: MORPHINE SULFATE 2 MG/1 ML DISP.SYRIN IV PRN ×2 (04:11→23:08)
[2021-10-26 05:34] LABS: HEMATOCRIT 40.6 % (36.7-47.1); MEAN CORPUSCULAR VOLUME 93.6 fL (73.0-96.2); PLATELET COUNT (AUTO) 100 K/uL (152-348)
[2021-10-26 05:40] LABS: CREATININE 1.8 mg/dL (0.6-1.3); PHOSPHOROUS 3.7 mg/dL (2.5-4.9); POTASSIUM 3.3 mmol/L (3.5-5.1)
[2021-10-26 05:43] LABS: NEUTROPHILS % (MANUAL) 0 % (42-75)
[2021-10-26 05:58] LABS: ABG BASE EXCESS 8.3 mmol/L; ABG HCO3 33.4 mmol/L; ABG PCO2 47.9 mmHg (35.0-45.0); ABG PH 7.461 (7.350-7.450); ABG PO2 86.2 mmHg (75.0-100.0); ABG SITE LEFT RADIAL; COHb 1.3 % (0.5-1.5); MetHb 0.1 % (0.0-1.5); O2Hb 95.8 % (94.0-97.0); VENT MODE Nasal Cannula
--- NOTE | 2021-10-26 06:53 | NUR ---
patient is on 4l nc , restless , central line dressing changed , intact , arias intact ,suctioned with moderate amount of secretion, no bowel movement ,
[2021-10-26] MEDS: PROTEIN SUPPLEMENT (PROSTAT) 30 ML LIQUID PO SCH ×3 (08:04→18:09)
[2021-10-26] MEDS: NUTRISOURCE FIBER 4 GM PACKET GT SCH ×3 (08:04→18:08)
[2021-10-26] MEDS: PANTOPRAZOLE ORAL SUSPENSION 40 MG SUSPDR.PKT GT SCH (08:04)
[2021-10-26] MEDS: METOPROLOL TARTRATE 50 MG TABLET PO SCH ×2 (08:05→21:11)
[2021-10-26] MEDS: FUROSEMIDE 40 MG TABLET PO SCH (08:05)
[2021-10-26] MEDS: ASPIRIN 81 MG TAB.CHEW PO SCH (08:05)
[2021-10-26] MEDS ORDERED: POTASSIUM CHLORIDE 20 MEQ POWDER PACKET GT ONE (09:15)
[2021-10-26] MEDS ORDERED: ZIPRASIDONE MESYLATE 20 MG VIAL IM ONE ×2 (10:30→10:45)
--- NOTE | 2021-10-26 11:15 | NUR ---
uneventful transport to CT scan of head. patient is able to tolerate transport.
--- NOTE | 2021-10-26 18:00 | NUR ---
replaced ngt. repeat xray for placement. lantus increased per orders blood sugars >300. will inform cage shift manager for plan of night bipap as ordered per dr. juárez.
[2021-10-26] MEDS ORDERED: INSULIN GLARGINE,HUM 300 UNITS/3 ML CARTRIDGE SQ SCH (21:00)
[2021-10-26] MEDS: ENOXAPARIN SODIUM 40 MG/0.4 ML DISP.SYRIN SQ SCH (21:09)
[2021-10-26] MEDS: ATORVASTATIN 40 MG TABLET PO SCH (21:10)
[2021-10-27] VITALS (22 sets, daily range): BP systolic 115–185; BP diastolic 63–129
[2021-10-27] MEDS: ALBUTEROL SULFATE 2.5 MG/ 0.5 ML NEBU NEB SCH ×5 (00:03→22:38)
--- NOTE | 2021-10-27 02:15 | NUR ---
PATIENT ON O2 @ 4L/M NC , PT PLACED ON BI/PAP APPROX. 00:[address] MODE, SETTINGS, 15/5, R16, FIO2 @ 40% WITH FULL LARGE MASK, PT MOVING AROUND AT TIMES, GELL PLACED BEHIND MASK, TO PREVENT TISSUE BREAKDOWN ,SLIGHTLY RED BEFORE PT ON BI/PAP, NURSE AWARE, PT DOING OK, RESTING AT TIMES, BUT DOES MOVE AROUND AT TIMES. SAT 90-95% APPROX. Mario LACYP Addendum: 10/27/21 at 0218 by OPAL DESAI RT Amended: Links added.
[2021-10-27 05:21] LABS: MEAN CORPUSCULAR HEMOGLOBIN 29.9 uug (23.8-33.4); MEAN CORPUSCULAR VOLUME 95.7 fL (73.0-96.2); PLATELET COUNT (AUTO) 103 K/uL (152-348)
[2021-10-27] MEDS: INSULIN REGULAR, HUMAN 300 UNIT/3 ML VIAL SQ PRN ×4 (05:32→23:32)
[2021-10-27] MEDS: BLOOD SUGAR DIAGNOSTIC 1 EACH STRIP VI SCH ×4 (05:33→23:30)
[2021-10-27 05:35] LABS: CREATININE 1.8 mg/dL (0.6-1.3); MAGNESIUM 2.6 mg/dL (1.8-2.4); PHOSPHOROUS 3.5 mg/dL (2.5-4.9)
--- NOTE | 2021-10-27 07:00 | NUR ---
Received pt. on Nasal canula 4 liters with saturation within desired limits. Neuro-reed restless agitated not following commands with gargle speech. Hemodynamically stable elevated SBP for which will be medicated as ordered. Ng-T in place feeding to be resumed. Huitron to gravity. IV line patent. Will continue with care plan. Safety measures implemented.
[2021-10-27] MEDS: ACETYLCYSTEINE 20% 800 MG/4 ML VIAL NEB SCH ×5 (07:17→23:30)
[2021-10-27] MEDS: IPRATROPIUM BROMIDE 0.5 MG/2.5 ML NEBU NEB SCH ×4 (07:17→22:38)
[2021-10-27] MEDS: PROTEIN SUPPLEMENT (PROSTAT) 30 ML LIQUID PO SCH ×3 (08:02→16:39)
[2021-10-27] MEDS: PANTOPRAZOLE ORAL SUSPENSION 40 MG SUSPDR.PKT GT SCH (08:02)
[2021-10-27] MEDS: NUTRISOURCE FIBER 4 GM PACKET GT SCH ×3 (08:02→16:39)
[2021-10-27] MEDS: FUROSEMIDE 40 MG TABLET PO SCH (08:03)
[2021-10-27] MEDS: METOPROLOL TARTRATE 50 MG TABLET PO SCH ×2 (08:03→20:39)
[2021-10-27] MEDS: ASPIRIN 81 MG TAB.CHEW PO SCH (08:03)
[2021-10-27 08:04] LABS: ABG BASE EXCESS 7.6 mmol/L; ABG HCO3 33.4 mmol/L; ABG PCO2 50.5 mmHg (35.0-45.0); ABG PH 7.438 (7.350-7.450); ABG PO2 60.8 mmHg (75.0-100.0); ABG SITE RIGHT BRACHIAL; ABG TOTAL HEMOGLOBIN 15.2 G/dL (13.5-18.0); MetHb 0.3 % (0.0-1.5); O2Hb 90.5 % (94.0-97.0); VENT MODE Nasal Cannula
--- NOTE | 2021-10-27 09:00 | NUR ---
Patient seen by pulmonary services Dr. Mart report given see orders hx.
[2021-10-27] MEDS: hydrALAZINE HCL 20 MG/1 ML VIAL IV PRN (09:03)
[2021-10-27] MEDS ORDERED: INSULIN REGULAR, HUMAN 300 UNIT/3 ML VIAL SQ ONE ×2 (12:00→16:45)
--- NOTE | 2021-10-27 12:00 | NUR ---
Attending N.P. called for blood sugar of 467 orders received and implemented.
[2021-10-27] MEDS: VITAL AF 1.2 1,000 ML LIQUID GT PRN ×2 (12:45→17:25)
[2021-10-27] MEDS: ZIPRASIDONE MESYLATE 20 MG VIAL IM PRN (13:38)
--- NOTE | 2021-10-27 17:00 | NUR ---
attending called and informed of latest glucose level, orders received and implemented.
[2021-10-27] MEDS: ATORVASTATIN 40 MG TABLET PO SCH (20:38)
[2021-10-27] MEDS: ENOXAPARIN SODIUM 40 MG/0.4 ML DISP.SYRIN SQ SCH (20:40)
[2021-10-27] MEDS ORDERED: INSULIN GLARGINE,HUM 300 UNITS/3 ML CARTRIDGE SQ SCH (21:00)
[2021-10-27] MEDS: MORPHINE SULFATE 2 MG/1 ML DISP.SYRIN IV PRN (22:46)
--- NOTE | 2021-10-27 23:54 | NUR ---
BS 457, insulin 10 units given. Notified Meza AVIATION ELECTRONIC WARFARE OPERATOR. Per Derrick [employer]IATION ELECTRONIC WARF[employer] OPERATOR to give another 10 unit of insulin and change sliding scale to aggressive q6. Noted and carried out.
[2021-10-28] VITALS (25 sets, daily range): BP systolic 111–159; BP diastolic 51–100
[2021-10-28] MEDS ORDERED: DEXTROSE 50% 50 ML DISP.SYRIN IV PRN
--- NOTE | 2021-10-28 01:52 | NUR ---
PATIENT PLACED ON BI/PAP JUST BEFORE 12AM, WITH SETTINGS, 15/5 , R16, FIO2 @ 40%, AND ADJUST AT TIMES, PT MOVES AROUND AT TIMES , BUT STABLE, SAT 92-94% APPROX, TAKE OFF BEFORE 0600, AND PT BACK ON O2 @ 4L/M NC , PT HAD NEB RX X 1 VIA MASK.Mario LACYP Addendum: 10/28/21 at 0155 by OPAL DESAI RT Amended: Links added.
[2021-10-28 05:10] LABS: HEMATOCRIT 45.8 % (36.7-47.1); MEAN CORPUSCULAR HEMOGLOBIN 30.5 uug (23.8-33.4); MEAN CORPUSCULAR VOLUME 95.9 fL (73.0-96.2); PLATELET COUNT (AUTO) 104 K/uL (152-348)
[2021-10-28 05:19] LABS: CREATININE 2.3 mg/dL (0.6-1.3); MAGNESIUM 2.7 mg/dL (1.8-2.4); PHOSPHOROUS 2.9 mg/dL (2.5-4.9); POTASSIUM 3.9 mmol/L (3.5-5.1)
[2021-10-28] MEDS: BLOOD SUGAR DIAGNOSTIC 1 EACH STRIP VI SCH ×5 (05:55→23:43)
[2021-10-28] MEDS: INSULIN REGULAR, HUMAN 300 UNIT/3 ML VIAL SQ PRN ×4 (05:58→23:45)
[2021-10-28 06:25] LABS: CREATININE 2.3 mg/dL (0.6-1.3)
--- NOTE | 2021-10-28 07:00 | NUR ---
Received pt. restless agitated, at times orientedX1. on Nasal canula 4L. with saturation. of 93%. with RR in the low 20's. Hemodynamically stable, on sinus rhythm in the 80's sbp within desired limits. TLC patent, arias to gravity. Will continue with care plan safety measures implemented at times. ............................................................................................ ............................................................................................ ............................................................................................ ............................................................................................ ............................................................................................ ............................................................................................ ............................................................................................ ............................................................................................ ............................................................................................ ............................................................................................ ............................................................................................ ............................................................................................ ............................................................................................ ............................................................................................ ......................................................................................
[2021-10-28] MEDS ORDERED: IV D5W 1000ML 1,000 ML IV PRN (07:30)
[2021-10-28] MEDS ORDERED: INSULIN REGULAR, HUMAN 300 UNIT/3 ML VIAL SQ ONE ×2 (07:30)
[2021-10-28] MEDS: ACETYLCYSTEINE 20% 800 MG/4 ML VIAL NEB SCH ×3 (07:35→19:54)
[2021-10-28] MEDS: ALBUTEROL SULFATE 2.5 MG/ 0.5 ML NEBU NEB SCH ×4 (07:44→19:54)
[2021-10-28] MEDS: IPRATROPIUM BROMIDE 0.5 MG/2.5 ML NEBU NEB SCH ×4 (07:44→19:54)
[2021-10-28] MEDS: ASPIRIN 81 MG TAB.CHEW PO SCH (08:01)
[2021-10-28] MEDS: NUTRISOURCE FIBER 4 GM PACKET GT SCH ×3 (08:01→16:04)
[2021-10-28] MEDS: PANTOPRAZOLE ORAL SUSPENSION 40 MG SUSPDR.PKT GT SCH (08:01)
[2021-10-28] MEDS: PROTEIN SUPPLEMENT (PROSTAT) 30 ML LIQUID PO SCH ×3 (08:01→16:04)
[2021-10-28] MEDS: METOPROLOL TARTRATE 50 MG TABLET PO SCH ×2 (08:02→20:04)
[2021-10-28] MEDS: INSULIN GLARGINE,HUM 300 UNITS/3 ML CARTRIDGE SQ SCH ×2 (08:03→20:04)
--- NOTE | 2021-10-28 08:30 | NUR ---
Patient seen by attending N.P. report given and orders to continue with care plan received and implemented.
[2021-10-28] MEDS: VITAL AF 1.2 1,000 ML LIQUID GT PRN (09:56)
[2021-10-28] MEDS: ZIPRASIDONE MESYLATE 20 MG VIAL IM PRN (11:27)
[2021-10-28] MEDS: IV D5W 1000ML 1,000 ML IV PRN ×2 (16:14→22:07)
--- NOTE | 2021-10-28 19:00 | NUR ---
Received report. Patient is awake, restless, VSS, NAD. On NC @6LPM, O2 sat 93%. NG TF Vital AF @65mls/hr, no gastric residual noted. R femoral PICC line with ongoing D5W @70mls/hr. Huitron catheter draining well to gravity. Will continue to monitor closely.
--- NOTE | 2021-10-28 20:00 | NUR ---
Free water flushes of 250ml q4 given via NG tube.
[2021-10-28] MEDS: ATORVASTATIN 40 MG TABLET PO SCH (20:04)
[2021-10-28] MEDS: ENOXAPARIN SODIUM 40 MG/0.4 ML DISP.SYRIN SQ SCH (20:05)
--- NOTE | 2021-10-28 21:00 | NUR ---
Placed on bipap machine as ordered c/o RT Andrey.
--- NOTE | 2021-10-28 23:52 | NUR ---
BS 447, Sliding scale of [address] Godoy made aware. Per Dr Godoy, to give another RHI 15 units once. Noted and carried out.
[2021-10-29] VITALS (25 sets, daily range): BP systolic 118–166; BP diastolic 63–98
[2021-10-29] MEDS ORDERED: INSULIN REGULAR, HUMAN 300 UNIT/3 ML VIAL SQ ONE
[2021-10-29] MEDS: MORPHINE SULFATE 2 MG/1 ML DISP.SYRIN IV PRN ×2 (01:37→06:57)
--- NOTE | 2021-10-29 04:30 | NUR ---
PICC line dressing changed.
[2021-10-29 05:10] LABS: HEMATOCRIT 44.3 % (36.7-47.1); MEAN CORPUSCULAR HEMOGLOBIN 30.8 uug (23.8-33.4); MEAN CORPUSCULAR VOLUME 95.2 fL (73.0-96.2); PLATELET COUNT (AUTO) 84 K/uL (152-348)
[2021-10-29] MEDS: INSULIN REGULAR, HUMAN 300 UNIT/3 ML VIAL SQ PRN ×4 (05:19→23:25)
[2021-10-29] MEDS: BLOOD SUGAR DIAGNOSTIC 1 EACH STRIP VI SCH ×4 (05:19→23:17)
--- NOTE | 2021-10-29 06:00 | NUR ---
NG TF off [id number].
[2021-10-29 06:17] LABS: CREATININE 2.2 mg/dL (0.6-1.3); MAGNESIUM 2.4 mg/dL (1.8-2.4); PHOSPHOROUS 3.2 mg/dL (2.5-4.9); POTASSIUM 3.8 mmol/L (3.5-5.1)
--- NOTE | 2021-10-29 06:25 | NUR ---
Lab called and spoke with Vargas with regards to critical lab results. Called [facility] and spoke with Dr Robledo, reported critical lab results, with no orders.
--- NOTE | 2021-10-29 06:29 | NUR ---
Bipap removed and placed on NC @5LPM c/o RT Andrey.
[2021-10-29 07:12] LABS: *BILIRUBIN,URIN 1+ (NEGATIVE); *BLOOD, URINE 2+ (NEGATIVE); *COLOR,URINE AMBER (YELLOW); *KETONES,URINE TRACE (NEGATIVE); LEUKOCYTE ESTERASE ,URINE NEGATIVE (NEGATIVE); NITRITE, URINE NEGATIVE (NEGATIVE); PH,URINE 5.5 (5.0-8.0); UGLUCOSE 1+ (NEGATIVE)
[2021-10-29] MEDS: ALBUTEROL SULFATE 2.5 MG/ 0.5 ML NEBU NEB SCH ×4 (07:34→19:51)
[2021-10-29] MEDS: ACETYLCYSTEINE 20% 800 MG/4 ML VIAL NEB SCH ×3 (07:34→19:51)
[2021-10-29] MEDS: IPRATROPIUM BROMIDE 0.5 MG/2.5 ML NEBU NEB SCH ×4 (07:34→19:49)
[2021-10-29] MEDS: PROTEIN SUPPLEMENT (PROSTAT) 30 ML LIQUID PO SCH ×3 (07:39→18:23)
[2021-10-29 07:50] LABS: *CLARITY,URINE HAZY (CLEAR)
[2021-10-29 07:51] LABS: ABG BASE EXCESS 8.4 mmol/L; ABG HCO3 34.8 mmol/L; ABG PCO2 55.3 mmHg (35.0-45.0); ABG PH 7.417 (7.350-7.450); ABG PO2 75.6 mmHg (75.0-100.0); ABG SITE RIGHT BRACHIAL; ABG TOTAL HEMOGLOBIN 14.3 G/dL (13.5-18.0); MetHb 0.3 % (0.0-1.5); VENT MODE Nasal Cannula
[2021-10-29 07:54] LABS: BACTERIA,URINE MODERATE /HPF (NONE SEEN); RBC,URINE 20-50 /HPF (0-3); SQUAMOUS EPITHELIAL CELL,UR MODERATE /HPF (NONE SEEN)
[2021-10-29] MEDS: PANTOPRAZOLE ORAL SUSPENSION 40 MG SUSPDR.PKT GT SCH (08:28)
[2021-10-29] MEDS: ASPIRIN 81 MG TAB.CHEW PO SCH (08:28)
[2021-10-29] MEDS: METOPROLOL TARTRATE 50 MG TABLET PO SCH ×2 (08:29→20:27)
[2021-10-29] MEDS: VITAL AF 1.2 1,000 ML LIQUID GT PRN (08:30)
[2021-10-29] MEDS: NUTRISOURCE FIBER 4 GM PACKET GT SCH ×3 (08:31→17:00)
[2021-10-29] MEDS: INSULIN GLARGINE,HUM 300 UNITS/3 ML CARTRIDGE SQ SCH (08:32)
[2021-10-29] MEDS: IV D5W 1000ML 1,000 ML IV PRN (18:19)
--- NOTE | 2021-10-29 19:00 | NUR ---
Received report. Patient is awake, restless, VSS, NAD. On NC @5LPM. NG TF Vital AF @65mls/hr, no gastric residual noted. R femoral PICC line with ongoing NS @TKO. Huitron catheter draining well to gravity. Will continue to monitor closely.
[2021-10-29] MEDS: IV NORMAL SALINE 250 ML IV PRN (19:46)
[2021-10-29] MEDS: ATORVASTATIN 40 MG TABLET PO SCH (20:27)
[2021-10-29] MEDS: ENOXAPARIN SODIUM 40 MG/0.4 ML DISP.SYRIN SQ SCH ×2 (20:28→20:46)
--- NOTE | 2021-10-29 20:47 | NUR ---
Hernesto held. Plt 84
[2021-10-29] MEDS ORDERED: INSULIN GLARGINE,HUM 300 UNITS/3 ML CARTRIDGE SQ SCH (21:00)
--- NOTE | 2021-10-29 21:00 | NUR ---
Placed on Bipap c/o RT
[2021-10-29] MEDS ORDERED: IV 1/2NS 1000 ML 1,000 ML IV ONE (22:30)
[2021-10-30] VITALS (24 sets, daily range): BP systolic 93–155; BP diastolic 44–101
[2021-10-30] MEDS: ACETAMINOPHEN 650 MG/20.3 ML LIQUID UDC GT PRN (00:27)
[2021-10-30 05:26] LABS: HEMATOCRIT 43.3 % (36.7-47.1); MEAN CORPUSCULAR HEMOGLOBIN 30.6 uug (23.8-33.4); MEAN CORPUSCULAR VOLUME 94.4 fL (73.0-96.2); PLATELET COUNT (AUTO) 77 K/uL (152-348)
[2021-10-30] MEDS: BLOOD SUGAR DIAGNOSTIC 1 EACH STRIP VI SCH ×3 (05:34→17:46)
[2021-10-30] MEDS: INSULIN REGULAR, HUMAN 300 UNIT/3 ML VIAL SQ PRN ×3 (05:36→17:48)
[2021-10-30 05:51] LABS: BILIRUBIN,DIRECT 0.7 mg/dL (0.0-0.2); BILIRUBIN,TOTAL 1.3 mg/dL (0.2-1.0); MAGNESIUM 2.6 mg/dL (1.8-2.4); PHOSPHOROUS 3.6 mg/dL (2.5-4.9); POTASSIUM 3.7 mmol/L (3.5-5.1); TOTAL PROTEIN, SERUM 8.7 g/dL (6.4-8.2)
--- NOTE | 2021-10-30 05:54 | NUR ---
Lab called and spoke with Vargas with regards to critical lab results. Called [facility] and paged doctor tactical air control party manager. Awaiting for callback.
--- NOTE | 2021-10-30 05:59 | NUR ---
Bipap removed and placed NC @5LPM c/o RT Andrey, O2 sat 98%.
--- NOTE | 2021-10-30 06:26 | NUR ---
Seen and examined by Dr Hodge, update given, critical lab reported. Per Dr. Hodge, to give Lantus 30 units AM and 24 units HS. Noted and carried out.
[2021-10-30] MEDS: IPRATROPIUM BROMIDE 0.5 MG/2.5 ML NEBU NEB SCH ×5 (07:24→23:37)
[2021-10-30] MEDS: ALBUTEROL SULFATE 2.5 MG/ 0.5 ML NEBU NEB SCH ×5 (07:24→23:37)
[2021-10-30] MEDS: ACETYLCYSTEINE 20% 800 MG/4 ML VIAL NEB SCH ×3 (07:25→23:37)
[2021-10-30] MEDS: VITAL AF 1.2 1,000 ML LIQUID GT PRN ×2 (08:00→09:41)
[2021-10-30] MEDS: METOPROLOL TARTRATE 50 MG TABLET PO SCH ×2 (08:16→20:31)
[2021-10-30] MEDS: PROTEIN SUPPLEMENT (PROSTAT) 30 ML LIQUID PO SCH ×2 (08:16→17:38)
[2021-10-30] MEDS: ASPIRIN 81 MG TAB.CHEW PO SCH (08:16)
[2021-10-30] MEDS: PANTOPRAZOLE ORAL SUSPENSION 40 MG SUSPDR.PKT GT SCH (08:16)
[2021-10-30] MEDS: INSULIN GLARGINE,HUM 300 UNITS/3 ML CARTRIDGE SQ SCH ×2 (08:17→20:41)
[2021-10-30] MEDS: NUTRISOURCE FIBER 4 GM PACKET GT SCH ×3 (08:18→17:38)
[2021-10-30 09:08] LABS: ABG BASE EXCESS 5.1 mmol/L; ABG HCO3 32.5 mmol/L; ABG PCO2 59.3 mmHg (35.0-45.0); ABG PH 7.357 (7.350-7.450); ABG PO2 88.6 mmHg (75.0-100.0); ABG SITE RIGHT RADIAL; COHb 0.8 % (0.5-1.5); MetHb 0.3 % (0.0-1.5); O2Hb 95.6 % (94.0-97.0); VENT MODE Nasal Cannula
[2021-10-30] MEDS: ZIPRASIDONE MESYLATE 20 MG VIAL IM PRN (13:30)
[2021-10-30] MEDS ORDERED: MEROPENEM 1 G in IV NORMAL SALINE 100 ML IV SCH (14:00)
--- NOTE | 2021-10-30 19:10 | NUR ---
received patient lethargic , on bipap 15/5 rate 16 fio2 40 % , ngt tf , running at 65 ml , placement checked and verified , no resdual noted , right femoral triple lumen intact , no fever , SR 95, sbp 111/ 74 , 94% , rr 33
[2021-10-30] MEDS: ATORVASTATIN 40 MG TABLET PO SCH (20:32)
[2021-10-31] VITALS (23 sets, daily range): BP systolic 74–150; BP diastolic 31–94
[2021-10-31] MEDS: BLOOD SUGAR DIAGNOSTIC 1 EACH STRIP VI SCH ×5 (00:25→23:28)
[2021-10-31] MEDS: INSULIN REGULAR, HUMAN 300 UNIT/3 ML VIAL SQ PRN ×5 (00:26→23:24)
[2021-10-31] MEDS: VITAL AF 1.2 1,000 ML LIQUID GT PRN ×2 (00:49→20:53)
[2021-10-31] MEDS: MEROPENEM 1 G in IV NORMAL SALINE 100 ML IV SCH ×2 (01:30→13:13)
[2021-10-31] MEDS: ZIPRASIDONE MESYLATE 20 MG VIAL IM PRN (01:33)
--- NOTE | 2021-10-31 02:07 | NUR ---
PATIENT HAS BEEN ON CONT B/PAP MACHINE 26/01, R16 , FIO2 @ 40% , RR19-23 RR APPROX, MOVES AROUND A LITTLE, ADJUST BI/PAP MASK, ; NO CHANGES MADE, NEB INLINE GIVEN . Mario LACYP Addendum: 10/31/21 at 0212 by OPAL DESAI RT Amended: Links added.
[2021-10-31 05:16] LABS: HEMATOCRIT 42.3 % (36.7-47.1); MEAN CORPUSCULAR HEMOGLOBIN 30.4 uug (23.8-33.4); MEAN CORPUSCULAR VOLUME 94.8 fL (73.0-96.2); PLATELET COUNT (AUTO) 70 K/uL (152-348)
[2021-10-31 05:39] LABS: CREATININE 2.3 mg/dL (0.6-1.3); MAGNESIUM 2.5 mg/dL (1.8-2.4); PHOSPHOROUS 4.1 mg/dL (2.5-4.9); POTASSIUM 4.2 mmol/L (3.5-5.1)
--- NOTE | 2021-10-31 06:45 | NUR ---
patient is placed on nc 5 l , tf is off as per order x 22 hours , suctioned orally with thick yellow blood tinged secretions, femoral central line intact , and arias intact
[2021-10-31] MEDS: PANTOPRAZOLE ORAL SUSPENSION 40 MG SUSPDR.PKT GT SCH (08:34)
[2021-10-31] MEDS: ASPIRIN 81 MG TAB.CHEW PO SCH (08:34)
[2021-10-31] MEDS: PROTEIN SUPPLEMENT (PROSTAT) 30 ML LIQUID PO SCH ×2 (08:35→17:32)
[2021-10-31] MEDS: METOPROLOL TARTRATE 50 MG TABLET PO SCH ×2 (08:35→20:45)
[2021-10-31 08:42] LABS: ABG BASE EXCESS 6.5 mmol/L; ABG HCO3 32.7 mmol/L; ABG PCO2 53.5 mmHg (35.0-45.0); ABG PH 7.404 (7.350-7.450); ABG PO2 73.1 mmHg (75.0-100.0); ABG SITE LEFT RADIAL; ABG TOTAL HEMOGLOBIN 13.6 G/dL (13.5-18.0); COHb 1.2 % (0.5-1.5); MetHb 0.3 % (0.0-1.5); VENT MODE Nasal Cannula
[2021-10-31] MEDS: NUTRISOURCE FIBER 4 GM PACKET GT SCH ×3 (08:42→17:33)
[2021-10-31] MEDS: INSULIN GLARGINE,HUM 300 UNITS/3 ML CARTRIDGE SQ SCH ×2 (08:56→20:45)
[2021-10-31] MEDS: ACETYLCYSTEINE 20% 800 MG/4 ML VIAL NEB SCH ×3 (09:00→23:56)
[2021-10-31] MEDS: IPRATROPIUM BROMIDE 0.5 MG/2.5 ML NEBU NEB SCH ×5 (09:00→23:57)
[2021-10-31] MEDS: ALBUTEROL SULFATE 2.5 MG/ 0.5 ML NEBU NEB SCH ×4 (09:00→21:20)
--- NOTE | 2021-10-31 10:35 | NUR ---
PT PLACED BACK ON BIPAP DUE TO DESATURATION AND INCREASED WOB. NURSE AWARE. WILL CONTINUE TO MONITOR.
--- NOTE | 2021-10-31 19:10 | NUR ---
received patient slightly restless , with intermittent spontaneous eye opening , bipap setting 15/5 rate 16 fio2 50 % , tf ngt placement checked , no residual , temp 99.3, vital af 65 ml , right femoral central line intact , arias draining
[2021-10-31] MEDS: ACETAMINOPHEN 650 MG/20.3 ML LIQUID UDC GT PRN (19:49)
[2021-10-31] MEDS: ATORVASTATIN 40 MG TABLET PO SCH (20:44)
[2021-11-01] VITALS (24 sets, daily range): BP systolic 90–164; BP diastolic 45–94
--- NOTE | 2021-11-01 01:01 | NUR ---
PATIENT HAS BEEN CONT ON BI/PAP ALL NOC, WITH FULL LARGE MASK , ADJUST SEVERAL TIMES, 26/01. RATE 16 , FIO2 @ 50%, SAT 94-97%, HELP NURSING WITH PT , TRY TO PUT PT ON 5L/M NC IN AM , SUCTION MOUTH SLIGHT BLOODY [place] SECRETIONS, SUCTION WITH YANKAUER, PT MOVES RIGHT ARM UP IN THE AIR AT TIMES, NO REAL VERBAL COMMUNICATION, NEB INLINE . Mario DESAI RCP Addendum: 11/01/21 at 0104 by OPAL DESAI RT Amended: Links added.
[2021-11-01] MEDS: MEROPENEM 1 G in IV NORMAL SALINE 100 ML IV SCH ×2 (02:38→16:14)
[2021-11-01 05:40] LABS: CREATININE 2.1 mg/dL (0.6-1.3); MAGNESIUM 2.6 mg/dL (1.8-2.4); PHOSPHOROUS 2.7 mg/dL (2.5-4.9); POTASSIUM 3.9 mmol/L (3.5-5.1)
--- NOTE | 2021-11-01 06:15 | NUR ---
patient is awake , with spontaneous eye opening , restless , unable to follow command , mouth is very dry with old blood noted oral care rendered and unable to clean fully patient wouldnt open mouth ,ngt secure , placement verified , no residual noted , breath sounds has crackles , placed on 5 l nc , tf is off as per order x 22 hours , right femoral central line intact , floey is draining
[2021-11-01 06:20] LABS: HEMATOCRIT 42.7 % (36.7-47.1); MEAN CORPUSCULAR HEMOGLOBIN 30.8 uug (23.8-33.4); MEAN CORPUSCULAR VOLUME 94.2 fL (73.0-96.2); PLATELET COUNT (AUTO) 62 K/uL (152-348)
[2021-11-01] MEDS: INSULIN REGULAR, HUMAN 300 UNIT/3 ML VIAL SQ PRN ×4 (06:35→23:24)
[2021-11-01] MEDS: BLOOD SUGAR DIAGNOSTIC 1 EACH STRIP VI SCH ×4 (06:37→23:23)
--- NOTE | 2021-11-01 06:57 | NUR ---
bs 317
--- NOTE | 2021-11-01 07:00 | NUR ---
Recieved pt. trach. to vent. awake. alert. dwnies pain. requested to be suctioned orally, for white saliva. Yankaer was used and pt. thanked me. I placed a wash cloth under his chin per request. Positioned for comfort. PICC line inserted via picc nurse. port. c..z.r. was done at 120 p.m. post-procedure.
[2021-11-01 07:46] LABS: ABG BASE EXCESS 3.4 mmol/L; ABG HCO3 30.1 mmol/L; ABG PCO2 52.8 mmHg (35.0-45.0); ABG PH 7.374 (7.350-7.450); ABG PO2 71.3 mmHg (75.0-100.0); ABG SITE LEFT RADIAL; ABG TOTAL HEMOGLOBIN 17.1 G/dL (13.5-18.0); COHb 0.7 % (0.5-1.5); MetHb 0.3 % (0.0-1.5); O2Hb 92.8 % (94.0-97.0)
[2021-11-01] MEDS: IPRATROPIUM BROMIDE 0.5 MG/2.5 ML NEBU NEB SCH ×4 (08:07→20:12)
[2021-11-01] MEDS: ALBUTEROL SULFATE 2.5 MG/ 0.5 ML NEBU NEB SCH ×4 (08:07→20:12)
[2021-11-01] MEDS: ACETYLCYSTEINE 20% 800 MG/4 ML VIAL NEB SCH ×3 (08:07→20:13)
[2021-11-01] MEDS: ASPIRIN 81 MG TAB.CHEW PO SCH (09:00)
[2021-11-01] MEDS: NUTRISOURCE FIBER 4 GM PACKET GT SCH ×3 (09:43→17:49)
[2021-11-01] MEDS: PANTOPRAZOLE ORAL SUSPENSION 40 MG SUSPDR.PKT GT SCH (09:44)
[2021-11-01] MEDS: METOPROLOL TARTRATE 50 MG TABLET PO SCH ×2 (09:45→21:24)
[2021-11-01] MEDS: INSULIN GLARGINE,HUM 300 UNITS/3 ML CARTRIDGE SQ SCH (10:28)
[2021-11-01] MEDS: PROTEIN SUPPLEMENT (PROSTAT) 30 ML LIQUID PO SCH ×2 (10:34→16:15)
[2021-11-01] MEDS ORDERED: diphenhydrAMINE 50 MG/1 ML VIAL ONE (14:28)
[2021-11-01] MEDS ORDERED: EPINEPHRINE 1 MG/1 ML AMP ONE (14:28)
[2021-11-01] MEDS: ACETAMINOPHEN 650 MG/20.3 ML LIQUID UDC GT PRN ×2 (16:11→23:35)
--- NOTE | 2021-11-01 19:30 | NUR ---
Report received. Patient restless, arms and legs over rails, doesn't follow any commands. O2 5L NC; O2 saturations above 92%. Coughing; suctioned for thick begum oral secretions. Tongue dry and coated with black/brown filament. Oral care done. Assessment done.
--- NOTE | 2021-11-01 19:32 | NUR ---
pt. was on vent. all day . no bi-pap. ac mode
[2021-11-01] MEDS: ZIPRASIDONE MESYLATE 20 MG VIAL IM PRN (20:02)
--- NOTE | 2021-11-01 20:02 | NUR ---
Geodon IM given. Patient remains extremely restless. RT here, deep suctioning done. Patient has good cough reflex. With large amounts of thick beige, bloody tinged secretions. Turned and repositioned. HOB elevated above 30 degrees at all times.
[2021-11-01] MEDS ORDERED: INSULIN GLARGINE,HUM 300 UNITS/3 ML CARTRIDGE SQ SCH (21:00)
--- NOTE | 2021-11-01 21:10 | NUR ---
Placed on BIPAP settings: 15/5, FIO2= 50%, rate=16. Patient monitored closely.
[2021-11-01] MEDS: ATORVASTATIN 40 MG TABLET PO SCH (21:26)
--- NOTE | 2021-11-01 22:30 | NUR ---
Spoke to Estela Hebert re: patient's accu [id number]; informed that Lantus 26 units HS dose given. No further order. Made aware that next accu check is at mid night and patient is on aggressive scale.
[2021-11-02] VITALS (24 sets, daily range): BP systolic 104–165; BP diastolic 54–88
[2021-11-02] MEDS: MEROPENEM 1 G in IV NORMAL SALINE 100 ML IV SCH ×2 (02:02→14:34)
[2021-11-02] MEDS: ZIPRASIDONE MESYLATE 20 MG VIAL IM PRN ×2 (03:55→20:04)
[2021-11-02] MEDS: IV NORMAL SALINE 250 ML IV PRN (04:00)
[2021-11-02 05:02] LABS: CREATININE 2.2 mg/dL (0.6-1.3); MAGNESIUM 2.8 mg/dL (1.8-2.4); PHOSPHOROUS 3.5 mg/dL (2.5-4.9); POTASSIUM 4.1 mmol/L (3.5-5.1)
[2021-11-02 05:09] LABS: HEMATOCRIT 43.4 % (36.7-47.1); MEAN CORPUSCULAR HEMOGLOBIN 30.6 uug (23.8-33.4); MEAN CORPUSCULAR VOLUME 96.9 fL (73.0-96.2); PLATELET COUNT (AUTO) 66 K/uL (152-348)
[2021-11-02] MEDS: BLOOD SUGAR DIAGNOSTIC 1 EACH STRIP VI SCH ×4 (05:21→23:23)
[2021-11-02] MEDS: INSULIN REGULAR, HUMAN 300 UNIT/3 ML VIAL SQ PRN ×5 (05:22→23:24)
--- NOTE | 2021-11-02 05:51 | NUR ---
Taken off BIPAP and placed on 5 L NC O2; O2 saturations above 92%. BPs stable. Still requires frequent suctioning.
[2021-11-02] MEDS: ALBUTEROL SULFATE 2.5 MG/ 0.5 ML NEBU NEB SCH ×4 (08:15→19:52)
[2021-11-02] MEDS: ACETYLCYSTEINE 20% 800 MG/4 ML VIAL NEB SCH ×3 (08:15→19:52)
[2021-11-02] MEDS: IPRATROPIUM BROMIDE 0.5 MG/2.5 ML NEBU NEB SCH ×4 (08:15→19:52)
[2021-11-02] MEDS: METOPROLOL TARTRATE 50 MG TABLET PO SCH ×2 (09:27→20:26)
[2021-11-02] MEDS: PANTOPRAZOLE ORAL SUSPENSION 40 MG SUSPDR.PKT GT SCH (09:27)
[2021-11-02] MEDS: ASPIRIN 81 MG TAB.CHEW PO SCH (09:27)
[2021-11-02] MEDS: PROTEIN SUPPLEMENT (PROSTAT) 30 ML LIQUID PO SCH ×2 (09:30→17:31)
[2021-11-02] MEDS: NUTRISOURCE FIBER 4 GM PACKET GT SCH ×3 (09:38→17:31)
[2021-11-02] MEDS: INSULIN GLARGINE,HUM 300 UNITS/3 ML CARTRIDGE SQ SCH (09:38)
--- NOTE | 2021-11-02 12:49 | NUR ---
Notified Dr. Mart of patients bleeding and increasing need for suction now bleeding more. Received order for ABG and intubate if needed.
[2021-11-02 13:07] LABS: ABG BASE EXCESS 5.1 mmol/L; ABG HCO3 32.7 mmol/L; ABG PCO2 60.4 mmHg (35.0-45.0); ABG PH 7.351 (7.350-7.450); ABG PO2 75.6 mmHg (75.0-100.0); ABG SITE LEFT RADIAL; ABG TOTAL HEMOGLOBIN 14.7 G/dL (13.5-18.0); COHb 0.9 % (0.5-1.5); MetHb 0.2 % (0.0-1.5); O2Hb 93.8 % (94.0-97.0)
[2021-11-02 14:54] LABS: BAND % (MANUAL) 3 % (0-10); LYMPHOCYTES % (MANUAL) 18 % (20-40); NEUTROPHILS % (MANUAL) 68 % (42-75)
[2021-11-02 14:55] LABS: EOSINOPHILS % (MANUAL) 1 % (0-8); MONOCYTES % (MANUAL) 10 % (2-10)
--- NOTE | 2021-11-02 15:00 | NUR ---
Patient placed back on bipap as he was restless, and desaturating. And ABG results were borderline.
--- NOTE | 2021-11-02 19:12 | NUR ---
Report to sales and marketing assistant nurse, patient in bed on barimax bed, comfortable in appearance with bipap. arias draining appropriately, patient tolerated bath. VITALS WNL at this time.
--- NOTE | 2021-11-02 19:45 | NUR ---
Received patient restless, arms and legs over rails, doesn't open eyes or follow any commands. O2 Saturations above 92 on BIPAP 15/5, Rate=16 FIO2 40%. Coughing; suctioned for thick begum oral secretions. Oral care rendered. With increasing restlessness during oral care and suctioning, shaking head vigorously right and left. Medicated with Geodon IM. VS stable. Addendum: 11/03/21 at 0124 by RUTH WARE RN Amended: Links added. Addendum: 11/03/21 at 0410 by RUTH WARE RN Amended: Links added.
[2021-11-02] MEDS: ATORVASTATIN 40 MG TABLET PO SCH (20:26)
[2021-11-02] MEDS ORDERED: INSULIN GLARGINE,HUM 300 UNITS/3 ML CARTRIDGE SQ SCH (21:00)
[2021-11-02] MEDS: ACETAMINOPHEN 650 MG/20.3 ML LIQUID UDC GT PRN (23:27)
[2021-11-03] VITALS (25 sets, daily range): BP systolic 81–172; BP diastolic 40–155
[2021-11-03] MEDS: MEROPENEM 1 G in IV NORMAL SALINE 100 ML IV SCH ×2 (01:11→13:29)
--- NOTE | 2021-11-03 01:25 | NUR ---
Still restless on and off, kicking pillows. Safety precautions maintained. Addendum: 11/03/21 at 0410 by RUTH WARE RN Amended: Links added.
[2021-11-03] MEDS: IV NORMAL SALINE 250 ML IV PRN (03:43)
[2021-11-03] MEDS: INSULIN REGULAR, HUMAN 300 UNIT/3 ML VIAL SQ PRN ×4 (05:16→23:18)
[2021-11-03] MEDS: BLOOD SUGAR DIAGNOSTIC 1 EACH STRIP VI SCH ×4 (05:16→23:22)
[2021-11-03 05:40] LABS: CREATININE 2.2 mg/dL (0.6-1.3); MAGNESIUM 2.9 mg/dL (1.8-2.4); PHOSPHOROUS 3.7 mg/dL (2.5-4.9); POTASSIUM 4.1 mmol/L (3.5-5.1)
--- NOTE | 2021-11-03 06:00 | NUR ---
Restless, Trying to remove BIPAP mask. RT here, taken off BIPAP and placed on 5L NC O2. Will monitor.
[2021-11-03 06:10] LABS: HEMATOCRIT 41.8 % (36.7-47.1); MEAN CORPUSCULAR HEMOGLOBIN 30.3 uug (23.8-33.4); MEAN CORPUSCULAR VOLUME 95.8 fL (73.0-96.2); PLATELET COUNT (AUTO) 63 K/uL (152-348)
--- NOTE | 2021-11-03 06:47 | NUR ---
Saturations above 90 on 5L NC O2. Patient awake, nods head to answer questions. Suctioned for thick bloody secretions. With good cough effort. HOB elevated above 30 degrees at all times. Bilateral soft wrist restraints applied. Patient attempts to remove NGT. Advised. Appears more awake and following commands.
[2021-11-03] MEDS: IPRATROPIUM BROMIDE 0.5 MG/2.5 ML NEBU NEB SCH ×4 (07:17→19:55)
[2021-11-03] MEDS: ALBUTEROL SULFATE 2.5 MG/ 0.5 ML NEBU NEB SCH ×4 (07:17→19:55)
[2021-11-03] MEDS: ACETYLCYSTEINE 20% 800 MG/4 ML VIAL NEB SCH ×3 (07:17→19:55)
[2021-11-03 07:34] LABS: ABG BASE EXCESS 2.1 mmol/L; ABG HCO3 27.7 mmol/L; ABG PCO2 47.2 mmHg (35.0-45.0); ABG PH 7.387 (7.350-7.450); ABG PO2 62.4 mmHg (75.0-100.0); ABG SITE LEFT RADIAL; ABG TOTAL HEMOGLOBIN 14.1 G/dL (13.5-18.0); COHb 0.4 % (0.5-1.5); MetHb 0.4 % (0.0-1.5); O2Hb 90.7 % (94.0-97.0)
[2021-11-03] MEDS: PANTOPRAZOLE ORAL SUSPENSION 40 MG SUSPDR.PKT GT SCH (08:03)
[2021-11-03] MEDS: ACETAMINOPHEN 650 MG/20.3 ML LIQUID UDC GT PRN (08:03)
[2021-11-03] MEDS: hydrALAZINE HCL 20 MG/1 ML VIAL IV PRN (08:07)
[2021-11-03] MEDS: PROTEIN SUPPLEMENT (PROSTAT) 30 ML LIQUID PO SCH (08:08)
[2021-11-03] MEDS: NUTRISOURCE FIBER 4 GM PACKET GT SCH ×2 (08:08→13:00)
[2021-11-03] MEDS: ASPIRIN 81 MG TAB.CHEW PO SCH (08:09)
[2021-11-03] MEDS: METOPROLOL TARTRATE 50 MG TABLET PO SCH ×2 (08:09→22:38)
[2021-11-03] MEDS: INSULIN GLARGINE,HUM 300 UNITS/3 ML CARTRIDGE SQ SCH ×2 (08:11→20:33)
[2021-11-03 10:07] LABS: BAND % (MANUAL) 1 % (0-10); LYMPHOCYTES % (MANUAL) 15 % (20-40); MONOCYTES % (MANUAL) 10 % (2-10); NEUTROPHILS % (MANUAL) 74 % (42-75)
[2021-11-03] MEDS: MORPHINE SULFATE 2 MG/1 ML DISP.SYRIN IV PRN (12:04)
[2021-11-03] MEDS ORDERED: HYDROCODONE/APAP 5-325MG TABLET PO ONE (15:15)
--- NOTE | 2021-11-03 17:00 | NUR ---
Patient pulled out NG tube and trying to get out of bed. One leg was out of side rail. Contacted MAGGY Albright and notified her of condition. Received orders for ativan and restraints and to replace the NG Tube.
[2021-11-03] MEDS ORDERED: LORAZEPAM 2 MG/1 ML VIAL IV ONE (17:06)
--- NOTE | 2021-11-03 18:42 | NUR ---
OG tube placed due to inability to place NGTube as patient continues to thrash. Patient placed back on bipap at this time as he started to have increased episodes of sleep apnea.
--- NOTE | 2021-11-03 19:00 | NUR ---
Received report. Patient is asleep, arousable to name and light touch, on Bipap machine as ordered. JENY. VSS. OG in place, awaiting for xray for OG placement. R femoral TLC with ongoing NS @ TKO. Huitron catheter draining well to gravity. Will continue to monitor closely. Addendum: 11/04/21 at 0640 by Abril Mena RN On bilateral soft wrist restraints, CMS intact.
--- NOTE | 2021-11-03 19:15 | NUR ---
interventional radiology tech at bedside for OG tube placement.
--- NOTE | 2021-11-03 21:00 | NUR ---
Followed up xray result for OG placement. Per tech, they had a problem in uploading it in the system. Will follow up later.
--- NOTE | 2021-11-03 21:48 | NUR ---
Per [facility], xray films are in queue for reading by
--- NOTE | 2021-11-03 22:30 | NUR ---
Received xray result for OG placement. OG tube in place, no gastric residual noted. 2100 meds given, free water flushes 300ml, and placed back on TF Nepro @ 50mls/hr. Addendum: 11/04/21 at 0537 by Abril Mena RN TF Nepro @55mls/hr
[2021-11-03] MEDS: ATORVASTATIN 40 MG TABLET PO SCH (22:40)
[2021-11-04] VITALS (24 sets, daily range): BP systolic 91–150; BP diastolic 53–109
[2021-11-04] MEDS: IV NORMAL SALINE 250 ML IV PRN (01:55)
[2021-11-04] MEDS: MEROPENEM 1 G in IV NORMAL SALINE 100 ML IV SCH ×2 (01:56→13:47)
[2021-11-04] MEDS: MORPHINE SULFATE 2 MG/1 ML DISP.SYRIN IV PRN (02:07)
--- NOTE | 2021-11-04 04:00 | NUR ---
AM care done. Linen changed.
[2021-11-04 05:00] LABS: HEMATOCRIT 40.8 % (36.7-47.1); MEAN CORPUSCULAR HEMOGLOBIN 30.3 uug (23.8-33.4); MEAN CORPUSCULAR VOLUME 95.6 fL (73.0-96.2); PLATELET COUNT (AUTO) 77 K/uL (152-348)
[2021-11-04] MEDS: BLOOD SUGAR DIAGNOSTIC 1 EACH STRIP VI SCH ×4 (05:02→23:16)
[2021-11-04] MEDS: INSULIN REGULAR, HUMAN 300 UNIT/3 ML VIAL SQ PRN ×4 (05:03→23:17)
[2021-11-04 05:17] LABS: CREATININE 2.1 mg/dL (0.6-1.3); MAGNESIUM 2.8 mg/dL (1.8-2.4); PHOSPHOROUS 3.8 mg/dL (2.5-4.9)
--- NOTE | 2021-11-04 05:45 | NUR ---
Bipap removed and placed on NC @5LPM.
--- NOTE | 2021-11-04 06:00 | NUR ---
Patient appears restless, agitated, attempting to climb out of bed and removing medical devices. Called [facility] and spoke with Monika Moore for orders. Per Monika, to give Haldol 1mg once IM. Noted and carried out. Will continue to monitor closely. Addendum: 11/04/21 at 0637 by Abril Mena RN TF Nepro @55mls/hr, off [id number].
[2021-11-04] MEDS ORDERED: HALOPERIDOL LACTATE 5 MG/1 ML VIAL IM ONE (06:15)
--- NOTE | 2021-11-04 07:00 | NUR ---
Received pt. on AAOX1 to name only, restless agitated, throwing his legs off bed and hitting bedside rails. safety measures implemented immediately. On BUE soft wrist restrains. Hemodynamically stable, with sbp within desired limits. OG-t in place pt. noted to be bitting tube, pt. educated and instructed to leave it alone but at this time not following commands. On NC 4L with saturation above 92%. tachypnea with RR in the low 30's. Huitron to gravity. Will continue to monitor.
[2021-11-04] MEDS: ALBUTEROL SULFATE 2.5 MG/ 0.5 ML NEBU NEB SCH ×4 (07:43→20:25)
[2021-11-04] MEDS: IPRATROPIUM BROMIDE 0.5 MG/2.5 ML NEBU NEB SCH ×4 (07:43→20:26)
[2021-11-04] MEDS: ACETYLCYSTEINE 20% 800 MG/4 ML VIAL NEB SCH ×3 (07:44→20:32)
[2021-11-04 07:53] LABS: ABG BASE EXCESS 4.8 mmol/L; ABG HCO3 30.3 mmol/L; ABG PCO2 47.5 mmHg (35.0-45.0); ABG PH 7.422 (7.350-7.450); ABG PO2 60.9 mmHg (75.0-100.0); ABG SITE LEFT RADIAL; ABG TOTAL HEMOGLOBIN 15.7 G/dL (13.5-18.0); COHb 0.6 % (0.5-1.5); MetHb 0.2 % (0.0-1.5); O2Hb 90.7 % (94.0-97.0); VENT MODE Nasal Cannula
[2021-11-04] MEDS: ASPIRIN 81 MG TAB.CHEW PO SCH (08:23)
[2021-11-04] MEDS: PANTOPRAZOLE ORAL SUSPENSION 40 MG SUSPDR.PKT GT SCH (08:23)
[2021-11-04] MEDS: METOPROLOL TARTRATE 50 MG TABLET PO SCH ×2 (08:29→20:36)
--- NOTE | 2021-11-04 08:45 | NUR ---
Pulmonary services, Dr. Mart in the unit to see and follow up on pt. report given and orders to continue with care plan received.
--- NOTE | 2021-11-04 08:53 | NUR ---
OG is in place per xray result. Upon giving medication, the tube in the mouth has opening due to the patient biting the tubing. Removed OG for safety. Dr Palmer, TRADE ECONOMIST made aware. Will continue to monitor the patient.
[2021-11-04] MEDS ORDERED: LORAZEPAM 2 MG/1 ML VIAL IV ONE (09:00)
[2021-11-04] MEDS ORDERED: INSULIN GLARGINE,HUM 300 UNITS/3 ML CARTRIDGE SQ SCH (09:00)
--- NOTE | 2021-11-04 09:49 | NUR ---
Consulting psychiatrist Dr. Bear in the unit to examine pt. report given and at this time spoke with pt's over the phone and discussed care plan.
[2021-11-04] MEDS: ZIPRASIDONE MESYLATE 20 MG VIAL IM PRN ×2 (10:40→18:57)
--- NOTE | 2021-11-04 11:05 | NUR ---
Geodon administered as orders patient remains restless and agitated 30min. after.
--- NOTE | 2021-11-04 12:00 | NUR ---
NG-Tube inserted; auscultated for positive placement, awaiting X-Ray to confirm placement.
[2021-11-04] MEDS: NEPRO 1000 ML GT PRN (13:24)
--- NOTE | 2021-11-04 14:00 | NUR ---
Patient removed from BiPap and placed on nasal cannula 4L.
--- NOTE | 2021-11-04 19:00 | NUR ---
Received report. Patient is restless, arousable to name, TRACI, JENY. NC@4LPM, O2 sat 98%. NG TF Nepro @55mls/hr, no gastric residual noted. R Femoral TLC with ongoing NS @TKO. Huitron catheter draining well to gravity. Will continue to monitor closely. Addendum: 11/04/21 at 2311 by Abril Mena RN On bilateral mittens restraints, CMS intact.
[2021-11-04] MEDS: ATORVASTATIN 40 MG TABLET PO SCH (20:35)
[2021-11-04] MEDS: INSULIN GLARGINE,HUM 300 UNITS/3 ML CARTRIDGE SQ SCH (20:37)
--- NOTE | 2021-11-04 21:00 | NUR ---
Placed on Bipap machine c/o RT Donald
[2021-11-05] VITALS (24 sets, daily range): BP systolic 113–184; BP diastolic 62–101
[2021-11-05] MEDS: MEROPENEM 1 G in IV NORMAL SALINE 100 ML IV SCH ×3 (01:00→18:09)
--- NOTE | 2021-11-05 01:00 | NUR ---
AM care done. Linen changed. BM x 1 soft brown in consistency.
--- NOTE | 2021-11-05 04:00 | NUR ---
Patient had a BM x1, brown soft in consistency. Cleaned and linen changed.
[2021-11-05] MEDS: BLOOD SUGAR DIAGNOSTIC 1 EACH STRIP VI SCH ×3 (05:02→18:03)
[2021-11-05] MEDS: INSULIN REGULAR, HUMAN 300 UNIT/3 ML VIAL SQ PRN ×3 (05:04→18:08)
[2021-11-05 05:47] LABS: HEMATOCRIT 40.7 % (36.7-47.1); MEAN CORPUSCULAR HEMOGLOBIN 30.3 uug (23.8-33.4); MEAN CORPUSCULAR VOLUME 95.6 fL (73.0-96.2); PLATELET COUNT (AUTO) 64 K/uL (152-348)
[2021-11-05 05:54] LABS: CREATININE 1.6 mg/dL (0.6-1.3); MAGNESIUM 2.7 mg/dL (1.8-2.4); PHOSPHOROUS 3.5 mg/dL (2.5-4.9); POTASSIUM 3.9 mmol/L (3.5-5.1)
--- NOTE | 2021-11-05 06:00 | NUR ---
TF Nepro off [id number].
--- NOTE | 2021-11-05 06:45 | NUR ---
Patient is still restless, awake, NC @4LPM, O2 sat 97%, tolerating well. VSS. NAD.
[2021-11-05] MEDS: IV NORMAL SALINE 250 ML IV PRN (06:46)
[2021-11-05] MEDS: ACETYLCYSTEINE 20% 800 MG/4 ML VIAL NEB SCH ×3 (07:04→19:42)
[2021-11-05] MEDS: IPRATROPIUM BROMIDE 0.5 MG/2.5 ML NEBU NEB SCH ×4 (07:04→19:42)
[2021-11-05] MEDS: ALBUTEROL SULFATE 2.5 MG/ 0.5 ML NEBU NEB SCH ×4 (07:04→19:42)
[2021-11-05] MEDS: NEPRO 1000 ML GT PRN (08:00)
[2021-11-05] MEDS: PANTOPRAZOLE ORAL SUSPENSION 40 MG SUSPDR.PKT GT SCH (08:05)
[2021-11-05] MEDS: ASPIRIN 81 MG TAB.CHEW PO SCH (08:05)
[2021-11-05] MEDS: METOPROLOL TARTRATE 50 MG TABLET PO SCH ×2 (08:07→20:28)
[2021-11-05] MEDS: INSULIN GLARGINE,HUM 300 UNITS/3 ML CARTRIDGE SQ SCH ×2 (08:14→20:28)
--- NOTE | 2021-11-05 19:15 | NUR ---
PATIENT IN BED AWAKE BUT CONFUSED . TOLERATING 02 NASAL CANNULA AT 4 L/MIN . SATURATION 95% RR 16.HOB UP .
[2021-11-05] MEDS: ATORVASTATIN 40 MG TABLET PO SCH (20:27)
--- NOTE | 2021-11-05 21:30 | NUR ---
FINGERSTICK DONE AND FOLLOW ISS SEE EMAR .
--- NOTE | 2021-11-05 22:00 | NUR ---
DUE MEDICATION GIVEN VIA THE NGT ,CRUSHED MEDICATION AND GIVEN VIA THE NGT ,PATIENT ON TF NEPRO AT 55 ML/HR AND WITH FREE WATER FLUSHES Q4 HOURS.HOB UP AND ASPIRATION PRECAUTION OBSERVED .
[2021-11-05] MEDS: ZIPRASIDONE MESYLATE 20 MG VIAL IM PRN (22:07)
--- NOTE | 2021-11-05 22:07 | NUR ---
ESSENCE GIVEN PATIENT VERY AGITATED AND RESTLESS .BIPAP KEEPS ON ALARMING PATIENT KEEPS MOVING HIS HEAD VIGOROUSLY FROM SIDE TO SIDE ,PATIENT AT MULTIPLE TIMES TRIES TO REMOVED BIPAP ,SOFT WRIST RESTRAINT IMPLEMENTED AND RESTRAINTS PROTOCOL FOLLOWED .
--- NOTE | 2021-11-05 22:35 | NUR ---
RESPIRATORY THERAPIST AT [facility] ,ORAL CARE DONE AND PLACED PATIENT ON BIPAP . 15/5 16 FIO2 40%.SATURATION 94% RR 26.
[2021-11-06] VITALS (24 sets, daily range): BP systolic 96–168; BP diastolic 62–104
[2021-11-06] MEDS: BLOOD SUGAR DIAGNOSTIC 1 EACH STRIP VI SCH ×5 (00:02→23:59)
[2021-11-06] MEDS: MEROPENEM 1 G in IV NORMAL SALINE 100 ML IV SCH ×3 (02:19→17:52)
--- NOTE | 2021-11-06 03:00 | NUR ---
AM CARE DONE ,BATH PATIENT CHANGED SOILED LINENS AND GOWN .PERIANAL CARE DONE.
--- NOTE | 2021-11-06 05:30 | NUR ---
OFF BIPAP PATIENT NOW ON 02 NASAL CANNULA AT 4 LITER/MIN RESPIRATORY THERAPIST AT [facility].
[2021-11-06] MEDS: INSULIN REGULAR, HUMAN 300 UNIT/3 ML VIAL SQ PRN ×4 (05:52→23:59)
[2021-11-06 06:11] LABS: CREATININE 1.3 mg/dL (0.6-1.3); HEMATOCRIT 42.7 % (36.7-47.1); MAGNESIUM 2.4 mg/dL (1.8-2.4); MEAN CORPUSCULAR HEMOGLOBIN 30.9 uug (23.8-33.4); MEAN CORPUSCULAR VOLUME 94.2 fL (73.0-96.2); PHOSPHOROUS 2.9 mg/dL (2.5-4.9); PLATELET COUNT (AUTO) 72 K/uL (152-348); POTASSIUM 3.9 mmol/L (3.5-5.1)
[2021-11-06] MEDS: hydrALAZINE HCL 20 MG/1 ML VIAL IV PRN (06:40)
--- NOTE | 2021-11-06 06:52 | NUR ---
HYDRALAZINE PRN GIVEN C/O BP SEE EMAR .
--- NOTE | 2021-11-06 07:30 | NUR ---
Patient in bed resting and easily arousable. No acute distress at the moment. Hemodynamically stable on the secured entrance monitor with sinus rhythm. On nasal cannula 4L, saturating in the 90s. No shortness of breath at the moment. NG tube patent and intact. Femoral line flushing, patent, and intact. Huitron draining by gravity. Safety precautions in place. Will continue to monitor.
[2021-11-06] MEDS: ACETYLCYSTEINE 20% 800 MG/4 ML VIAL NEB SCH ×3 (07:38→19:43)
[2021-11-06] MEDS: ALBUTEROL SULFATE 2.5 MG/ 0.5 ML NEBU NEB SCH ×4 (07:38→19:43)
[2021-11-06] MEDS: IPRATROPIUM BROMIDE 0.5 MG/2.5 ML NEBU NEB SCH ×4 (07:38→19:43)
[2021-11-06 07:54] LABS: ABG HCO3 31.9 mmol/L; ABG PCO2 45.8 mmHg (35.0-45.0); ABG PH 7.461 (7.350-7.450); ABG PO2 82.8 mmHg (75.0-100.0); ABG SITE RIGHT RADIAL; ABG TOTAL HEMOGLOBIN 14.6 G/dL (13.5-18.0); COHb 0.7 % (0.5-1.5); MetHb 0.3 % (0.0-1.5); O2Hb 95.3 % (94.0-97.0); VENT MODE Nasal Cannula
[2021-11-06] MEDS: ASPIRIN 81 MG TAB.CHEW PO SCH ×2 (08:33→09:00)
[2021-11-06] MEDS: PANTOPRAZOLE ORAL SUSPENSION 40 MG SUSPDR.PKT GT SCH (08:33)
[2021-11-06] MEDS: METOPROLOL TARTRATE 50 MG TABLET PO SCH ×2 (08:33→20:09)
[2021-11-06] MEDS: LOSARTAN POTASSIUM 25 MG TABLET PO SCH (08:34)
[2021-11-06] MEDS: INSULIN GLARGINE,HUM 300 UNITS/3 ML CARTRIDGE SQ SCH ×2 (08:35→20:45)
[2021-11-06] MEDS: ACETAMINOPHEN 650 MG/20.3 ML LIQUID UDC GT PRN (09:03)
--- NOTE | 2021-11-06 12:30 | NUR ---
Patient pulled out NG-tube; reinserted new NG-tube in left nare. Auscultated for positive placement, awaiting x-ray results to confirm placement.
[2021-11-06] MEDS: DOXYCYCLINE HYCLATE 100 MG TABLET PO SCH ×2 (14:04→20:11)
--- NOTE | 2021-11-06 15:08 | NUR ---
Received call from Gloria who reported patient has positive MRSA in sputum.
--- NOTE | 2021-11-06 15:16 | NUR ---
Reported positive MRSA sputum results to MAGGY Nguyen. Addendum: 11/06/21 at 1545 by AMY ACOSTA RN Reported positive MRSA sputum to MAGGY Guerrero, carina Nguyen.
--- NOTE | 2021-11-06 18:59 | NUR ---
Held aspirin due to low platelets (72).
--- NOTE | 2021-11-06 20:00 | NUR ---
ROUNDS MADE patient in bed open eyes spontaneously ,confused doesn't follow commands . on o2 nasal cannula at 4 l/min ,tolerating oxygen saturation 95 % rr 18 to 20. soft wrist restraint protocol follow and observed patient keeps on moving and at times noted to be agitated . NGT with TF of vital 55 ml/hr in progress and infusing well patient tolerating TF . FC TO BSD with yellowish urine . AFEBRILE 99.F ,SR 84 V/S WNL . SEE V/S SHEET .
[2021-11-06] MEDS: ATORVASTATIN 40 MG TABLET PO SCH (20:09)
--- NOTE | 2021-11-06 23:00 | NUR ---
respiratory therapist [facility] , placed patient on BIPAP.
--- NOTE | 2021-11-06 23:45 | NUR ---
PM CARE DONE AND CHANGED SOILED LINENS AND GOWN ,F.C DONE AND ORAL CARE DONE . TURNED AND REPOSITION PATIENT .OFFLOADED BACK WITH PILLOWS AND BUE AND BLE UP WITH PILLOWS .
[2021-11-07] VITALS (24 sets, daily range): BP systolic 101–161; BP diastolic 56–102
--- NOTE | 2021-11-07 | NUR ---
fingersticks done and follow ISS . NGT free water flushes done q4 H with 350 ml .tolerating TF on nepro at 55 ml/hr .hob and aspiration precaution obs . turned and reposition patient off loaded back with pillows and bue and ble up with pillows .
[2021-11-07] MEDS: IV NORMAL SALINE 250 ML IV PRN (00:48)
[2021-11-07] MEDS: MEROPENEM 1 G in IV NORMAL SALINE 100 ML IV SCH ×3 (01:17→17:02)
--- NOTE | 2021-11-07 02:00 | NUR ---
turned and reposition patient . suction via the mouth and oral care done .
[2021-11-07] MEDS: BLOOD SUGAR DIAGNOSTIC 1 EACH STRIP VI SCH ×4 (05:27→23:21)
[2021-11-07 05:29] LABS: HEMATOCRIT 40.8 % (36.7-47.1); MEAN CORPUSCULAR HEMOGLOBIN 30.3 uug (23.8-33.4); MEAN CORPUSCULAR VOLUME 94.6 fL (73.0-96.2); PLATELET COUNT (AUTO) 68 K/uL (152-348)
[2021-11-07] MEDS: INSULIN REGULAR, HUMAN 300 UNIT/3 ML VIAL SQ PRN ×4 (05:35→23:22)
[2021-11-07 05:50] LABS: CREATININE 1.5 mg/dL (0.6-1.3); MAGNESIUM 2.2 mg/dL (1.8-2.4); PHOSPHOROUS 3.8 mg/dL (2.5-4.9)
[2021-11-07 05:56] LABS: NEUTROPHILS % (MANUAL) 0 % (42-75)
--- NOTE | 2021-11-07 06:00 | NUR ---
off BIPAP back on 02 nasal cannula at 4 l/min . fingerstick done and follow ISS. OFF tube feeding .flushed NGT .
[2021-11-07] MEDS: IPRATROPIUM BROMIDE 0.5 MG/2.5 ML NEBU NEB SCH ×4 (07:30→19:09)
[2021-11-07] MEDS: ALBUTEROL SULFATE 2.5 MG/ 0.5 ML NEBU NEB SCH ×4 (07:30→19:09)
[2021-11-07] MEDS: ACETYLCYSTEINE 20% 800 MG/4 ML VIAL NEB SCH ×3 (07:30→23:30)
--- NOTE | 2021-11-07 07:30 | NUR ---
Received patient in bed resting and easily arousable. Arousable to name. No acute distress at the moment. Hemodynamically stable on the property assessment monitor with sinus rhythm. On nasal cannula 4L, saturating in the 90s. No shortness of breath at the moment. NG tube patent and intact. Femoral line flushing, patent, and intact. Huitron draining by gravity. Safety precautions in place. Will continue to monitor.
[2021-11-07] MEDS: ASPIRIN 81 MG TAB.CHEW PO SCH (08:17)
[2021-11-07] MEDS: METOPROLOL TARTRATE 50 MG TABLET PO SCH ×2 (08:18→20:17)
[2021-11-07] MEDS: PANTOPRAZOLE ORAL SUSPENSION 40 MG SUSPDR.PKT GT SCH (08:19)
[2021-11-07] MEDS: DOXYCYCLINE HYCLATE 100 MG TABLET PO SCH ×2 (08:22→20:17)
[2021-11-07] MEDS: LOSARTAN POTASSIUM 25 MG TABLET PO SCH (08:22)
[2021-11-07] MEDS: INSULIN GLARGINE,HUM 300 UNITS/3 ML CARTRIDGE SQ SCH ×2 (08:23→20:20)
[2021-11-07] MEDS: NEPRO 1000 ML GT PRN (08:24)
--- NOTE | 2021-11-07 19:00 | NUR ---
Received report. Patient is awake, responsive, A/Ox3. VSS. NAD. On NC @4LPM. NG TF Nepro @55mls/hr, no gastric residual. R femoral TLC with ongoing Merrem antibiotic. Huitron catheter draining well to gravity. Will continue to monitor closely. Addendum: 11/07/21 at 2133 by Abril Mena RN On bilateral soft mittens restraints, CMS intact.
[2021-11-07] MEDS: ATORVASTATIN 40 MG TABLET PO SCH (20:17)
--- NOTE | 2021-11-07 21:00 | NUR ---
Placed on bipap machine c/o RT Mariano, tolerating well.
[2021-11-07] MEDS: hydrALAZINE HCL 20 MG/1 ML VIAL IV PRN (23:16)
[2021-11-08] VITALS (24 sets, daily range): BP systolic 91–138; BP diastolic 47–93
[2021-11-08] MEDS: MEROPENEM 1 G in IV NORMAL SALINE 100 ML IV SCH ×2 (01:37→10:26)
[2021-11-08 04:55] LABS: HEMATOCRIT 39.3 % (36.7-47.1); MEAN CORPUSCULAR VOLUME 93.7 fL (73.0-96.2); PLATELET COUNT (AUTO) 70 K/uL (152-348)
[2021-11-08] MEDS: BLOOD SUGAR DIAGNOSTIC 1 EACH STRIP VI SCH ×4 (05:11→23:25)
[2021-11-08] MEDS: INSULIN REGULAR, HUMAN 300 UNIT/3 ML VIAL SQ PRN ×4 (05:11→23:24)
--- NOTE | 2021-11-08 05:14 | NUR ---
Remove bipap machine and placed on NC @4LPM c/o RT Roman, tolerating well with an O2 sat of 94%.
[2021-11-08 05:15] LABS: CREATININE 1.3 mg/dL (0.6-1.3); MAGNESIUM 2.1 mg/dL (1.8-2.4); PHOSPHOROUS 3.4 mg/dL (2.5-4.9); POTASSIUM 3.7 mmol/L (3.5-5.1)
--- NOTE | 2021-11-08 06:00 | NUR ---
TF Nepro off [id number].
--- NOTE | 2021-11-08 06:34 | NUR ---
Left patient awake, resting comfortably, NC @4LPM O2 sat 95%. NAD. VSS.
[2021-11-08] MEDS: ALBUTEROL SULFATE 2.5 MG/ 0.5 ML NEBU NEB SCH ×3 (08:21→15:14)
[2021-11-08] MEDS: ACETYLCYSTEINE 20% 800 MG/4 ML VIAL NEB SCH ×3 (08:21→23:30)
[2021-11-08] MEDS: IPRATROPIUM BROMIDE 0.5 MG/2.5 ML NEBU NEB SCH ×3 (08:21→15:14)
[2021-11-08 08:33] LABS: ABG HCO3 31.8 mmol/L; ABG PCO2 50.2 mmHg (35.0-45.0); ABG PH 7.419 (7.350-7.450); ABG PO2 85.2 mmHg (75.0-100.0); ABG SITE LEFT RADIAL; ABG TOTAL HEMOGLOBIN 13.9 G/dL (13.5-18.0); COHb 0.6 % (0.5-1.5); MetHb 0.1 % (0.0-1.5); O2Hb 95.5 % (94.0-97.0); VENT MODE Nasal Cannula
[2021-11-08] MEDS: ASPIRIN 81 MG TAB.CHEW PO SCH (08:57)
[2021-11-08] MEDS: METOPROLOL TARTRATE 50 MG TABLET PO SCH ×2 (08:58→20:29)
[2021-11-08] MEDS: PANTOPRAZOLE ORAL SUSPENSION 40 MG SUSPDR.PKT GT SCH (08:58)
[2021-11-08] MEDS: DOXYCYCLINE HYCLATE 100 MG TABLET PO SCH ×2 (08:58→20:30)
[2021-11-08] MEDS: LOSARTAN POTASSIUM 25 MG TABLET PO SCH (08:59)
[2021-11-08] MEDS: INSULIN GLARGINE,HUM 300 UNITS/3 ML CARTRIDGE SQ SCH ×2 (09:00→20:37)
[2021-11-08] MEDS: ACETAMINOPHEN 650 MG/20.3 ML LIQUID UDC GT PRN (09:09)
[2021-11-08] MEDS: ZIPRASIDONE MESYLATE 20 MG VIAL IM PRN ×2 (10:51→18:49)
--- NOTE | 2021-11-08 10:59 | NUR ---
patient extremely agitated throwing legs over side rails and trying to get out of bed, and pulling at lines. Geodone given.
[2021-11-08] MEDS: MORPHINE SULFATE 2 MG/1 ML DISP.SYRIN IV PRN (16:56)
--- NOTE | 2021-11-08 18:00 | NUR ---
Patient is becoming increasingly aggitated waving hands in the air and talking to the ceiling and yelling out, squirming in the bed. Patient desaturating to 86%, and asked respiratory to place patient on bipap.
--- NOTE | 2021-11-08 18:50 | NUR ---
patient continues to be agitated pulling at lines and bipap. Patient given geodone.
--- NOTE | 2021-11-08 19:45 | NUR ---
V/S DONE AFEBRILE TEMP 98.3 F SR 81 ON THE HEART MONITOR . BIPAP WHEN RECEIVED SETTINGS 15/5 BACK UP RATE 16 FIO2 AT 40% SATURATION 95% RR 21. ON BILATERAL SOFT WRIST RESTRAINTS, PROTOCOL OBSERVED AND FOLLOWED.
--- NOTE | 2021-11-08 20:00 | NUR ---
free water flushes of 350 l given via the ngt tube patient on NEPRO @ 55 ML/HOUR GOAL REACH .
[2021-11-08] MEDS: ATORVASTATIN 40 MG TABLET PO SCH (20:28)
--- NOTE | 2021-11-08 20:30 | NUR ---
fingerstick done and follow insulin sliding scale , see emar .
--- NOTE | 2021-11-08 21:00 | NUR ---
PM CARE DONE ,BATH PATIENT CHANGED SOILED LINENS AND GOWN . PERINEAL CARE DONE AND GARCIA CARE DONE .TURNED AND REPOSITION PATIENT . HOB UP AND ASPIRATION PRECAUTION OBSERVED .
[2021-11-08] MEDS: IV NORMAL SALINE 250 ML IV PRN (21:58)
[2021-11-09] VITALS (25 sets, daily range): BP systolic 93–154; BP diastolic 57–97
[2021-11-09] MEDS: IPRATROPIUM BROMIDE 0.5 MG/2.5 ML NEBU NEB SCH ×5 (00:12→20:40)
[2021-11-09] MEDS: ALBUTEROL SULFATE 2.5 MG/ 0.5 ML NEBU NEB SCH ×5 (00:13→20:40)
[2021-11-09] MEDS: MORPHINE SULFATE 2 MG/1 ML DISP.SYRIN IV PRN ×2 (01:43→11:05)
--- NOTE | 2021-11-09 01:43 | NUR ---
GIVEN MORPHINE PRN PATIENT AGITATED AND RESTLESS NOTED TO BE KICKING THE BED .ADVISED TO STOP ON KICKING THE BED AND TRY TO RELAX PATIENT UNABLE TO FOLLOW COMMANDS CONFUSED .
--- NOTE | 2021-11-09 02:42 | NUR ---
PATIENT HAS BEEN ON CONT BI/PAP ALL SHIFT, WITH SETTINGS ,15/5. RR16 , FIO2 @ 40%, PT RESTLESS AT TIMES, MOVES AROUND A LOT, ADJUST MASK SEVERAL TIMES, AND MOANS AT TIMES, NEB INLINE X 1 , MAY TAKE OFF BI/PAP AT 6AM TO REST, SAT 96-98% . Mario LACYP Addendum: 11/09/21 at 0245 by OPAL DEASI RT Amended: Links added.
[2021-11-09] MEDS: ZIPRASIDONE MESYLATE 20 MG VIAL IM PRN ×2 (03:00→14:53)
--- NOTE | 2021-11-09 03:00 | NUR ---
ESSENCE hillman given patient restless ,agitated and screaming ,advised to calm down patient unable to follow commands patient confused .
--- NOTE | 2021-11-09 03:13 | NUR ---
respiratory therapist at b/s ,patient screaming on bipap . placed pt on nasal cannula 6 l/min saturation 93% rr 15 . patient much more calm .
--- NOTE | 2021-11-09 04:00 | NUR ---
right femoral central line dressing done aseptically .
--- NOTE | 2021-11-09 05:30 | NUR ---
am care done ,bath patient changed soiled linens and gown .perineal care done and Huitron care done . oral care done .
[2021-11-09 05:42] LABS: HEMATOCRIT 38.9 % (36.7-47.1); MEAN CORPUSCULAR HEMOGLOBIN 29.8 uug (23.8-33.4); MEAN CORPUSCULAR VOLUME 93.7 fL (73.0-96.2); PLATELET COUNT (AUTO) 57 K/uL (152-348)
[2021-11-09] MEDS: BLOOD SUGAR DIAGNOSTIC 1 EACH STRIP VI SCH ×3 (06:09→18:11)
--- NOTE | 2021-11-09 06:11 | NUR ---
PATIENT TAKEN OFF BI/PAP @ 03:16, WAS MOANING AND YELLING, AND MOVING AROUND A LOT, SO NURSING AND RT DECIDED TAKE HIM OFF BI/PAP AND LET HIM REST FROM THE MASK, PT PLACED ON O2 @ 5L/M NC , AND DOING WELL, NOW PT IS QUIET AND RESTING SAT 98% . Mario DESAI VOICE AND DATA TECHNICIAN Addendum: 11/09/21 at 0614 by OPAL DESAI RT Amended: Links added.
[2021-11-09] MEDS: INSULIN REGULAR, HUMAN 300 UNIT/3 ML VIAL SQ PRN ×2 (06:14→12:02)
--- NOTE | 2021-11-09 06:22 | NUR ---
PATIENT NOW ON O2 @ 4L/M NC , SAT 98% . Mario DESAI BIOGEOGRAPHER Addendum: 11/09/21 at 0623 by OPAL DESAI RT Amended: Links added.
[2021-11-09 06:29] LABS: POTASSIUM 3.8 mmol/L (3.5-5.1)
[2021-11-09 06:30] LABS: CREATININE 1.2 mg/dL (0.6-1.3); MAGNESIUM 2.1 mg/dL (1.8-2.4); PHOSPHOROUS 4.1 mg/dL (2.5-4.9)
--- NOTE | 2021-11-09 07:00 | NUR ---
Received pt., sleeping intermittently and when awake, agitation/restlessness noted. pupils BERTHA and pt. oriented to name only. On dual restrains BUE soft wrist restrains, and mittens, circulation present extremities warm to touch. On NC 4 Liters with saturation within desired limits no tachypnea. Cardiac-reed on NSR with blood pressure within desired limits. GI-reed NGtube in place, with placement confirmed by auscultation feeding to be resumed. TLC right femoral patent tko running. Huitron to gravity with tea color output noted. on air loss matters safety measures implemented, will continue with care plan.
[2021-11-09] MEDS: ACETYLCYSTEINE 20% 800 MG/4 ML VIAL NEB SCH (07:18)
[2021-11-09] MEDS: DOXYCYCLINE HYCLATE 100 MG TABLET PO SCH ×2 (08:15→21:16)
[2021-11-09] MEDS: PANTOPRAZOLE ORAL SUSPENSION 40 MG SUSPDR.PKT GT SCH (08:15)
[2021-11-09] MEDS: LOSARTAN POTASSIUM 25 MG TABLET PO SCH (08:16)
[2021-11-09] MEDS: ASPIRIN 81 MG TAB.CHEW PO SCH (08:16)
[2021-11-09] MEDS: METOPROLOL TARTRATE 50 MG TABLET PO SCH ×2 (08:17→21:17)
[2021-11-09] MEDS: INSULIN GLARGINE,HUM 300 UNITS/3 ML CARTRIDGE SQ SCH ×2 (08:22→21:15)
--- NOTE | 2021-11-09 09:00 | NUR ---
Attending DNP in the unit to follow up on pt. report given orders received. See order hx.
[2021-11-09] MEDS: NEPRO 1000 ML GT PRN (09:03)
--- NOTE | 2021-11-09 09:30 | NUR ---
Pulmonary services, in the unit to follow up on pt. report given and orders to continue with care plan received.
--- NOTE | 2021-11-09 10:49 | NUR ---
Cardiology services, Dr. Jimenez in the unit to examine pt. No new orders receives, but to continue with care plan.
--- NOTE | 2021-11-09 12:18 | NUR ---
Huitron catheter changed tip found semi-occluded with dark brown sedimented and hardened staff.
[2021-11-09] MEDS: ACETYLCYSTEINE 10% 4ML VIAL NEB SCH ×2 (15:00→20:42)
[2021-11-09] MEDS: ATORVASTATIN 40 MG TABLET PO SCH (21:17)
[2021-11-10] VITALS (24 sets, daily range): BP systolic 97–164; BP diastolic 47–94
--- NOTE | 2021-11-10 00:39 | NUR ---
PATIENT ON O2 @ 4L/M NC, THEN PT PLACED ON BI/PAP @ 23:15, WITH NEW MASK, DOING OK, MORE STABLE, SAT 98%, FIO2 @ 40%.Mario LACYP Addendum: 11/10/21 at 0040 by OPAL DESAI RT Amended: Links added.
[2021-11-10] MEDS: BLOOD SUGAR DIAGNOSTIC 1 EACH STRIP VI SCH ×5 (01:23→23:42)
[2021-11-10] MEDS: IV NORMAL SALINE 250 ML IV PRN (02:36)
[2021-11-10] MEDS: hydrALAZINE HCL 20 MG/1 ML VIAL IV PRN (02:59)
[2021-11-10] MEDS: INSULIN REGULAR, HUMAN 300 UNIT/3 ML VIAL SQ PRN ×3 (05:03→23:41)
[2021-11-10 05:20] LABS: POTASSIUM 3.8 mmol/L (3.5-5.1)
[2021-11-10 05:21] LABS: MAGNESIUM 1.9 mg/dL (1.8-2.4); PHOSPHOROUS 3.3 mg/dL (2.5-4.9)
[2021-11-10 05:35] LABS: MEAN CORPUSCULAR HEMOGLOBIN 30.4 uug (23.8-33.4); MEAN CORPUSCULAR VOLUME 92.7 fL (73.0-96.2); PLATELET COUNT (AUTO) 56 K/uL (152-348)
[2021-11-10] MEDS: MORPHINE SULFATE 2 MG/1 ML DISP.SYRIN IV PRN (06:12)
[2021-11-10] MEDS: ZIPRASIDONE MESYLATE 20 MG VIAL IM PRN ×2 (07:06→16:53)
[2021-11-10] MEDS: ACETYLCYSTEINE 10% 4ML VIAL NEB SCH ×3 (07:09→20:21)
[2021-11-10] MEDS: IPRATROPIUM BROMIDE 0.5 MG/2.5 ML NEBU NEB SCH ×4 (07:09→20:20)
[2021-11-10] MEDS: ALBUTEROL SULFATE 2.5 MG/ 0.5 ML NEBU NEB SCH ×4 (07:09→20:20)
--- NOTE | 2021-11-10 08:00 | NUR ---
Received patient restless, anxious calling out "mommy" medicated by Sonu BARNES. HOB UP O2 @4/L via N/C NG tube withNepro 1.5 elian via NG tube Left nare taped 80 cm.SR on monitor. Indwelling urinary cath with 200cc darlin/yellow Bilateral soft wrists rotated with finger space good circulation noted. Repositioned with assistance.
[2021-11-10] MEDS: ASPIRIN 81 MG TAB.CHEW PO SCH (08:27)
[2021-11-10] MEDS: METOPROLOL TARTRATE 50 MG TABLET PO SCH ×2 (08:27→20:47)
[2021-11-10] MEDS: PANTOPRAZOLE ORAL SUSPENSION 40 MG SUSPDR.PKT GT SCH (08:27)
[2021-11-10] MEDS: LOSARTAN POTASSIUM 25 MG TABLET PO SCH (08:28)
[2021-11-10] MEDS: DOXYCYCLINE HYCLATE 100 MG TABLET PO SCH ×2 (08:28→20:48)
[2021-11-10] MEDS: NEPRO 1000 ML GT PRN (08:29)
[2021-11-10] MEDS: INSULIN GLARGINE,HUM 300 UNITS/3 ML CARTRIDGE SQ SCH ×2 (08:32→20:54)
--- NOTE | 2021-11-10 09:27 | NUR ---
Pt. restless agitated screaming out-loud "I need help Mom please help me" and when staff at bedside and questioning what's bothering him his response is to laugh and states "I can't breath" saturation of 100% on 4 liters N.C. Attending notified.
--- NOTE | 2021-11-10 09:29 | NUR ---
Call back from attending orders received.
[2021-11-10] MEDS ORDERED: QUETIAPINE FUMARATE 25 MG TABLET PO ONE (09:30)
--- NOTE | 2021-11-10 10:15 | NUR ---
Dr Bethany Parra Pulmonary bedside. No new orders.
[2021-11-10] MEDS ORDERED: AMIODARONE HCL 200 MG TABLET PO SCH (12:00)
[2021-11-10] MEDS: ATORVASTATIN 40 MG TABLET PO SCH (20:46)
[2021-11-10] MEDS ORDERED: QUETIAPINE FUMARATE 25 MG TABLET PO SCH (21:00)
--- NOTE | 2021-11-10 21:32 | NUR ---
PATIENT ON BI/PAP PRIOR TO NOC SHIFT, SETTINGS, 15/5, RATE 16 40%. PT CAB BE QUIET FOR AWHILE THEN WAKES UP, MOVING AROUND AT TIMES, RE POSITION MASK, HELP NURSING, GOOD OXYGENATION, WILL MONITOR CLOSELY, PT IN AM GOES ON O2 @ 4L/M CHAITANYA DESAI RCP Addendum: 11/10/21 at 7564 by OPAL DESAI RT Amended: Links added.
[2021-11-10 22:36] LABS: NEUTROPHILS % (MANUAL) 0 % (42-75)
[2021-11-11] VITALS (23 sets, daily range): BP systolic 97–152; BP diastolic 40–83
[2021-11-11 05:41] LABS: CREATININE 1.3 mg/dL (0.6-1.3); POTASSIUM 3.9 mmol/L (3.5-5.1)
[2021-11-11] MEDS: BLOOD SUGAR DIAGNOSTIC 1 EACH STRIP VI SCH ×4 (05:52→23:10)
[2021-11-11] MEDS: INSULIN REGULAR, HUMAN 300 UNIT/3 ML VIAL SQ PRN ×4 (05:53→23:13)
[2021-11-11] MEDS: ZIPRASIDONE MESYLATE 20 MG VIAL IM PRN (06:11)
--- NOTE | 2021-11-11 07:15 | NUR ---
Received pt. restless agitated, throwing one of his legs off bed and not following commands, oriented to name only. On bilateral upper soft wrist and mittens, circulation present. Hemodynamically stable NSR and sbp within desired limits. On NC 4Liters with saturation above 92%, no tachypnea, and remains with production of thick secretion and unable to cough them up. Huitron to gravity, IV line patent. Will continue with care plan.
[2021-11-11] MEDS: ACETYLCYSTEINE 10% 4ML VIAL NEB SCH ×3 (07:34→19:37)
[2021-11-11] MEDS: IPRATROPIUM BROMIDE 0.5 MG/2.5 ML NEBU NEB SCH ×4 (07:34→19:37)
[2021-11-11] MEDS: ALBUTEROL SULFATE 2.5 MG/ 0.5 ML NEBU NEB SCH ×4 (07:34→19:37)
[2021-11-11] MEDS: ASPIRIN 81 MG TAB.CHEW PO SCH (08:01)
[2021-11-11] MEDS: PANTOPRAZOLE ORAL SUSPENSION 40 MG SUSPDR.PKT GT SCH (08:01)
[2021-11-11] MEDS: LOSARTAN POTASSIUM 25 MG TABLET PO SCH (08:01)
[2021-11-11] MEDS: METOPROLOL TARTRATE 50 MG TABLET PO SCH ×2 (08:01→20:40)
[2021-11-11] MEDS: DOXYCYCLINE HYCLATE 100 MG TABLET PO SCH ×2 (08:01→20:18)
[2021-11-11] MEDS: NEPRO 1000 ML GT PRN (08:02)
[2021-11-11] MEDS: INSULIN GLARGINE,HUM 300 UNITS/3 ML CARTRIDGE SQ SCH ×2 (08:05→20:42)
--- NOTE | 2021-11-11 09:30 | NUR ---
Patient seen by pulmonary services, Dr. Mart report given orders received. See order hx.
--- NOTE | 2021-11-11 10:15 | NUR ---
Attending LYUBOV Cadena in the unit to follow up on pt. report given orders to continue with care plan received.
[2021-11-11] MEDS ORDERED: NORMAL SALINE FLUSH 10 ML DISP.SYRIN IV SCH ×2 (14:00→16:00)
--- NOTE | 2021-11-11 15:51 | NUR ---
Clinical Social Work Note [facility]A spoke with patient's , Patricia Noyola ([phone]), to inquire about patient's housing situation. Per Mrs. Noyola patient is not homeless and they live together in [place]. HIRA confirmed patient's address: [address] [place] [address]. [address] [place] [address]. Plan: HIRA will continue to support patient with additional resources if needed.
--- NOTE | 2021-11-11 18:49 | NUR ---
Left pt. in bed resting, Off restrains, oriented to name, pt. less restless and agitated except when visited by this afternoon. On NC 4L saturation of 100% no respiratory distress. Hemodynamically stable, no sob or c/of pain. NG with feeding running pt. tolerating well. IV line patent. Will endorse for continuity of care.
[2021-11-11] MEDS ORDERED: NORMAL SALINE FLUSH 10 ML DISP.SYRIN IV PRN (19:30)
--- NOTE | 2021-11-11 20:00 | NUR ---
Report received. Patient AA oriented to name and place. Mildly restless, turning in with bed legs over rails and kicking pillows. Follows commands and able to redirect patient. Reoriented PRN. RT walker here. Patient turned and repositioned in bed. Monitored closely. VS stable. O2 4L NC.
[2021-11-11] MEDS: ATORVASTATIN 40 MG TABLET PO SCH (20:40)
[2021-11-11] MEDS: QUETIAPINE FUMARATE 25 MG TABLET PO SCH (20:40)
--- NOTE | 2021-11-11 21:00 | NUR ---
Patient on and off restless; advised and redirected PRN.
[2021-11-11] MEDS: NORMAL SALINE FLUSH 10 ML DISP.SYRIN IV SCH (22:08)
--- NOTE | 2021-11-11 23:00 | NUR ---
RT here. Patient pulled up in bed and repositioned. Placed on BIPAP 15/5, rate=16, FIO2=40%. O2 saturations maintaining above 94%. Addendum: 11/12/21 at 0036 by RUTH WARE RN Amended: Links added.
[2021-11-12] VITALS (26 sets, daily range): BP systolic 91–185; BP diastolic 42–101
[2021-11-12] MEDS: ZIPRASIDONE MESYLATE 20 MG VIAL IM PRN ×2 (00:10→12:46)
--- NOTE | 2021-11-12 00:10 | NUR ---
Patient restless, agitated, yelling, removing BIPAP. Reoriented again and again. Medicated with Geodon IM. Stayed with patient.
[2021-11-12 04:43] LABS: PLATELET COUNT (AUTO) 53 K/uL (152-348)
--- NOTE | 2021-11-12 04:45 | NUR ---
Taken off BIPAP, O2 saturations maintaining above 94%. Still restless on and off.
[2021-11-12 04:52] LABS: HEMATOCRIT 36.5 % (36.7-47.1); MEAN CORPUSCULAR HEMOGLOBIN 30.3 uug (23.8-33.4); MEAN CORPUSCULAR VOLUME 92.3 fL (73.0-96.2)
[2021-11-12 04:54] LABS: CREATININE 1.1 mg/dL (0.6-1.3); MAGNESIUM 1.8 mg/dL (1.8-2.4); PHOSPHOROUS 3.6 mg/dL (2.5-4.9); POTASSIUM 3.6 mmol/L (3.5-5.1)
[2021-11-12] MEDS: NORMAL SALINE FLUSH 10 ML DISP.SYRIN IV SCH ×3 (05:06→21:07)
[2021-11-12] MEDS: BLOOD SUGAR DIAGNOSTIC 1 EACH STRIP VI SCH ×4 (05:06→23:46)
[2021-11-12] MEDS: INSULIN REGULAR, HUMAN 300 UNIT/3 ML VIAL SQ PRN ×3 (05:08→17:33)
[2021-11-12] MEDS: hydrALAZINE HCL 20 MG/1 ML VIAL IV PRN (05:24)
[2021-11-12] MEDS: ACETYLCYSTEINE 10% 4ML VIAL NEB SCH ×3 (07:30→19:43)
[2021-11-12] MEDS: ALBUTEROL SULFATE 2.5 MG/ 0.5 ML NEBU NEB SCH ×4 (07:30→19:43)
[2021-11-12] MEDS: IPRATROPIUM BROMIDE 0.5 MG/2.5 ML NEBU NEB SCH ×4 (07:30→19:43)
[2021-11-12] MEDS: NEPRO 1000 ML GT PRN (08:06)
[2021-11-12] MEDS: PANTOPRAZOLE ORAL SUSPENSION 40 MG SUSPDR.PKT GT SCH (08:20)
[2021-11-12] MEDS: ASPIRIN 81 MG TAB.CHEW PO SCH (08:20)
[2021-11-12] MEDS: METOPROLOL TARTRATE 50 MG TABLET PO SCH ×2 (08:21→20:08)
[2021-11-12] MEDS: DOXYCYCLINE HYCLATE 100 MG TABLET PO SCH ×2 (08:22→20:08)
[2021-11-12] MEDS: LOSARTAN POTASSIUM 25 MG TABLET PO SCH (08:22)
[2021-11-12] MEDS: INSULIN GLARGINE,HUM 300 UNITS/3 ML CARTRIDGE SQ SCH ×2 (08:24→20:21)
--- NOTE | 2021-11-12 08:30 | NUR ---
Pt.was seen by JOSE LAWLER MD
[2021-11-12 09:04] LABS: ABG BASE EXCESS 2.8 mmol/L; ABG HCO3 27.7 mmol/L; ABG PCO2 43.7 mmHg (35.0-45.0); ABG PO2 81.4 mmHg (75.0-100.0); ABG SITE RIGHT RADIAL; ABG TOTAL HEMOGLOBIN 13.3 G/dL (13.5-18.0); COHb 0.5 % (0.5-1.5); MetHb 0.1 % (0.0-1.5); O2Hb 95.3 % (94.0-97.0); VENT MODE Nasal Cannula
--- NOTE | 2021-11-12 09:40 | NUR ---
Pt.was seen by GISELA MCKENZIE MD
[2021-11-12] MEDS: MORPHINE SULFATE 2 MG/1 ML DISP.SYRIN IV PRN (13:30)
--- NOTE | 2021-11-12 19:30 | NUR ---
Received patient restless on and off, speech clear, oriented to name and follows commands appropriately. O2 2 L NC, saturations above 94%.
[2021-11-12] MEDS: QUETIAPINE FUMARATE 25 MG TABLET PO SCH (20:07)
--- NOTE | 2021-11-12 20:07 | NUR ---
With increasing restlessness, legs over rails, kicking pillows, turning in bed. Seroquel due at 2100 given via patent NGT. Safety precautions maintained. Reoriented and redirected PRN.
[2021-11-12] MEDS: ATORVASTATIN 40 MG TABLET PO SCH (20:08)
--- NOTE | 2021-11-12 23:00 | NUR ---
Cleaned for moderate soft brown BM. Bath given. Turned and repositioned. Still restless on and off. Placed on BIPAP 15/5, rate=16, FIO2=40%. Monitored closely.
[2021-11-13] VITALS (24 sets, daily range): BP systolic 83–168; BP diastolic 53–110
--- NOTE | 2021-11-13 01:10 | NUR ---
Extremely restless, yelling, calling 's name and uses profanity. When redirected patient says " I don't believe you!" and yells again. Reoriented again and again. Medicated with Alessandra SHORE.
[2021-11-13] MEDS: ZIPRASIDONE MESYLATE 20 MG VIAL IM PRN ×3 (01:13→23:36)
--- NOTE | 2021-11-13 03:00 | NUR ---
Sleeping on and off on BIPAP. VS stable.
--- NOTE | 2021-11-13 05:00 | NUR ---
Patient awake and restless again. Taken off BIPAP and placed on NC O2 at 2 L. Saturations above 94%.
[2021-11-13] MEDS: NORMAL SALINE FLUSH 10 ML DISP.SYRIN IV SCH ×3 (05:04→21:50)
[2021-11-13] MEDS: BLOOD SUGAR DIAGNOSTIC 1 EACH STRIP VI SCH ×4 (05:04→23:18)
[2021-11-13] MEDS: INSULIN REGULAR, HUMAN 300 UNIT/3 ML VIAL SQ PRN ×3 (05:05→23:18)
[2021-11-13 05:07] LABS: CREATININE 1.2 mg/dL (0.6-1.3); MAGNESIUM 1.7 mg/dL (1.8-2.4); PHOSPHOROUS 4.8 mg/dL (2.5-4.9); POTASSIUM 3.6 mmol/L (3.5-5.1)
[2021-11-13 05:14] LABS: HEMATOCRIT 37.2 % (36.7-47.1); MEAN CORPUSCULAR HEMOGLOBIN 30.2 uug (23.8-33.4); MEAN CORPUSCULAR VOLUME 92.9 fL (73.0-96.2); PLATELET COUNT (AUTO) 53 K/uL (152-348)
--- NOTE | 2021-11-13 06:20 | NUR ---
SBPs in the 160's. Hydralazine IV given.
[2021-11-13] MEDS: hydrALAZINE HCL 20 MG/1 ML VIAL IV PRN (06:24)
[2021-11-13] MEDS: IPRATROPIUM BROMIDE 0.5 MG/2.5 ML NEBU NEB SCH ×4 (07:13→20:13)
[2021-11-13] MEDS: ACETYLCYSTEINE 10% 4ML VIAL NEB SCH ×3 (07:13→20:14)
[2021-11-13] MEDS: ALBUTEROL SULFATE 2.5 MG/ 0.5 ML NEBU NEB SCH ×4 (07:14→20:13)
[2021-11-13 08:10] LABS: LYMPHOCYTES % (MANUAL) 26 % (20-40); MONOCYTES % (MANUAL) 7 % (2-10); NEUTROPHILS % (MANUAL) 67 % (42-75)
[2021-11-13] MEDS: ASPIRIN 81 MG TAB.CHEW PO SCH (08:27)
[2021-11-13] MEDS: PANTOPRAZOLE ORAL SUSPENSION 40 MG SUSPDR.PKT GT SCH (08:27)
[2021-11-13] MEDS: LOSARTAN POTASSIUM 25 MG TABLET PO SCH (08:28)
[2021-11-13] MEDS: METOPROLOL TARTRATE 50 MG TABLET PO SCH ×2 (08:29→20:06)
[2021-11-13] MEDS: DOXYCYCLINE HYCLATE 100 MG TABLET PO SCH ×2 (08:30→20:07)
[2021-11-13] MEDS: INSULIN GLARGINE,HUM 300 UNITS/3 ML CARTRIDGE SQ SCH ×2 (08:32→20:24)
[2021-11-13] MEDS ORDERED: MAGNESIUM OXIDE 400 MG TABLET GT ONE (10:15)
[2021-11-13] MEDS: MORPHINE SULFATE 2 MG/1 ML DISP.SYRIN IV PRN (11:37)
--- NOTE | 2021-11-13 11:52 | NUR ---
Patient is becoming combative and yelling out profanity. Patient needed to be restrained patient is attempting to pull out lines and attempting to get out of bed. Patient is yelling out spoke the coating mixer supervisor and is telling her that he did cocaine this morning and that he liked it and that he felt high and wants to feel like that again. During oral care he is fighting and calling the nurses "bitches" and that he is going to kill us when he gets out. He also is banging on the bed requiring placement of mittens.
[2021-11-13] MEDS ORDERED: IV 1/2NS 1000 ML 1,000 ML IV ONE (19:00)
--- NOTE | 2021-11-13 19:30 | NUR ---
Received patient AA oriented to name and place, yelling for ice and water. Patient advised appropriately. Plan of care discussed. With bilateral mittens for safety. HOB elevated. Ice chips given; no swallowing difficulty.
--- NOTE | 2021-11-13 20:05 | NUR ---
PO meds crushed and given with yogurt. No swallowing difficulty. NGT feedings remain at 55 ml/H. No residuals. Addendum: 11/13/21 at 2307 by RUTH WARE RN Amended: Links added. Addendum: 11/13/21 at 2308 by RUHT WARE RN Amended: Links added.
[2021-11-13] MEDS: ATORVASTATIN 40 MG TABLET PO SCH (20:06)
[2021-11-13] MEDS: QUETIAPINE FUMARATE 25 MG TABLET PO SCH (20:07)
--- NOTE | 2021-11-13 21:30 | NUR ---
Sleeping. VS stable. Addendum: 11/13/21 at 2308 by RUTH WARE RN Amended: Links added.
--- NOTE | 2021-11-13 23:30 | NUR ---
Starting to get agitated, medicated with Geodon IM. RT Braxton here. Bath given; cleaned for a smear of brown stools. Patient repositioned, HOB elevated.
--- NOTE | 2021-11-13 23:48 | NUR ---
PATIENT WAS ON O2 @ 2L/M NC , NEB RX GIVEN, THEN APPROX. 23:40 PT PLACED BACK ON BI/PAP WITH FULL LRG. MASK REPOSITION, WITH GELL BEHIND MASK, SO FAR TOLERATING WELL, WILL MONITOR CLOSELY . Mario DESAI RCP Addendum: 11/13/21 at 2350 by OPAL DESAI RT Amended: Links added.
[2021-11-14] VITALS (11 sets, daily range): BP systolic 91–154; BP diastolic 46–90
--- NOTE | 2021-11-14 05:00 | NUR ---
Patient taken off BIPAP and placed on O2 2L by CHAITANYA. VSS.
[2021-11-14] MEDS: BLOOD SUGAR DIAGNOSTIC 1 EACH STRIP VI SCH ×4 (05:07→20:34)
[2021-11-14] MEDS: NORMAL SALINE FLUSH 10 ML DISP.SYRIN IV SCH ×3 (05:07→22:14)
[2021-11-14] MEDS: INSULIN REGULAR, HUMAN 300 UNIT/3 ML VIAL SQ PRN ×3 (05:09→17:18)
[2021-11-14 05:15] LABS: CARBON DIOXIDE 32 mmol/L (21-32); CHLORIDE 106 mmol/L (98-107); CREATININE 1.5 mg/dL (0.6-1.3); GLUCOSE 209 mg/dL (74-106); MAGNESIUM 1.9 mg/dL (1.8-2.4); PHOSPHOROUS 4.7 mg/dL (2.5-4.9); POTASSIUM 3.8 mmol/L (3.5-5.1); UREA NITROGEN, BLOOD 63 mg/dL (7-18)
[2021-11-14 05:24] LABS: HEMATOCRIT 37.6 % (36.7-47.1); MEAN CORPUSCULAR HEMOGLOBIN 30.3 uug (23.8-33.4); PLATELET COUNT (AUTO) 53 K/uL (152-348)
[2021-11-14 05:50] LABS: ABG BASE EXCESS 2.6 mmol/L; ABG HCO3 28.7 mmol/L; ABG PCO2 50.7 mmHg (35.0-45.0); ABG PH 7.371 (7.350-7.450); ABG PO2 71.6 mmHg (75.0-100.0); ABG SITE LEFT RADIAL; ABG TOTAL HEMOGLOBIN 12.9 G/dL (13.5-18.0); COHb 0.2 % (0.5-1.5); MetHb 0.4 % (0.0-1.5); O2Hb 92.7 % (94.0-97.0); VENT MODE Nasal Cannula
--- NOTE | 2021-11-14 07:00 | NUR ---
Demanding to have some water; taking water without swallowing difficulty.
[2021-11-14] MEDS: IPRATROPIUM BROMIDE 0.5 MG/2.5 ML NEBU NEB SCH ×4 (07:19→20:48)
[2021-11-14] MEDS: ALBUTEROL SULFATE 2.5 MG/ 0.5 ML NEBU NEB SCH ×4 (07:19→20:49)
[2021-11-14] MEDS: ACETYLCYSTEINE 10% 4ML VIAL NEB SCH ×3 (07:20→20:52)
--- NOTE | 2021-11-14 07:25 | NUR ---
With increasing agitation, demanding and verbally abusive to nurses. Redirected and reoriented PRN.
[2021-11-14] MEDS: ZIPRASIDONE MESYLATE 20 MG VIAL IM PRN ×3 (07:31→22:55)
--- NOTE | 2021-11-14 07:50 | NUR ---
patient noted with severe agitation, verbally abusive, banging on the side rails, geodon administered as ordered. continue to monitor
[2021-11-14] MEDS: DOXYCYCLINE HYCLATE 100 MG TABLET PO SCH ×2 (08:03→20:28)
[2021-11-14] MEDS: LOSARTAN POTASSIUM 25 MG TABLET PO SCH (08:03)
[2021-11-14] MEDS: PANTOPRAZOLE ORAL SUSPENSION 40 MG SUSPDR.PKT GT SCH (08:03)
[2021-11-14] MEDS: METOPROLOL TARTRATE 50 MG TABLET PO SCH ×2 (08:04→20:34)
[2021-11-14] MEDS: ASPIRIN 81 MG TAB.CHEW PO SCH (08:04)
[2021-11-14] MEDS: INSULIN GLARGINE,HUM 300 UNITS/3 ML CARTRIDGE SQ SCH ×2 (08:13→20:35)
--- NOTE | 2021-11-14 08:38 | NUR ---
patient tolerated po fluids and some puree food, however still noted with coughing episodes during meals Addendum: 11/14/21 at 0845 by RIAN HUANG RN, RN some gurgling, able to cough it up and swallow, saturating at 98% on 2 liter nasal canula. no respiratory distress noted, NG tube is intact, with positive placement, Huitron catheter is intact.
--- NOTE | 2021-11-14 08:48 | NUR ---
received call from Britt, ordered to downgrade patient from CCU to [facility], ordered by dr Zepeda senior analysis specialist, order initiated
--- NOTE | 2021-11-14 09:40 | NUR ---
PATIENT WAS TRANSFERRED FROM ICU FOR CONTINUITY OF CARE A [facility] STATUS.
--- NOTE | 2021-11-14 10:15 | NUR ---
report given to [facility] nurse Magaly.
--- NOTE | 2021-11-14 10:20 | NUR ---
patient moved to third floor, room 312, still screaming, and yelling, very destructive behaviour, dr lange made aware, dr lange assessed patient with orders, per dr lange monitor patient for oversedation. nurse Magaly BARNES made aware about dr lange orders and to monitor patient for oversedation. patient is yelling and screaming at this time, no sings and symptoms of oversedation noted at this time.
--- NOTE | 2021-11-14 10:22 | NUR ---
SEEN BY DR VILLALPANDO FOR PSYCH SEE NOTES. ADVISED TO AVOID TOO MUCH SEDATION. PATIENT REMAINS CONFUSED AND DISORIENTED X3. NO SS OF DISTRESS WITH 2L O2 NC SATURATING 100%. CONTINUE [facility] MONITORING
[2021-11-14] MEDS: QUETIAPINE FUMARATE 25 MG TABLET PO SCH ×4 (10:32→20:28)
--- NOTE | 2021-11-14 16:30 | NUR ---
PATIENT BECAME VERY AGGRESSIVE AND TRYING TO GET OUT OF BED,POSITIONED COMFORTABLY IN BED. GEODON GIVEN AND CLOSELY MONITORED
--- NOTE | 2021-11-14 17:14 | NUR ---
1700 SERROQUEL NOT GIVEN PATIENT WAS GIVEN GEODON AT 1600 FOR SEVERE AGITATION
[2021-11-14] MEDS ORDERED: DEXTROSE 50% 50 ML DISP.SYRIN IV PRN (18:00)
[2021-11-14] MEDS: ATORVASTATIN 40 MG TABLET PO SCH (20:28)
--- NOTE | 2021-11-15 00:16 | NUR ---
00:10 - PT WAS PLACED ON BI/PAP FOR 5 MINS, PT VERY COMBATIVE , PULLING OFF BI/PAP AND YELLING , NURSE NOTIFIED, PT PLACED BACK ON O2 @ 2L/M NC, WITH SITTER, MORE RELAXED , PT IS RESTLESS AT TIMES, DOES NOT FOLLOW COMMANDS MOST OF THE TIME. Mario LACYP Addendum: 11/15/21 at 0020 by OPAL DESAI RT Amended: Links added.
[2021-11-15] MEDS: MORPHINE SULFATE 2 MG/1 ML DISP.SYRIN IV PRN ×2 (03:39→13:27)
[2021-11-15 03:48] VITALS: BP 125/64
--- NOTE | 2021-11-15 05:48 | NUR ---
Pt very restless all night, screaming and kicking. Sitter at bedside for safety. Pt tolerated all medications well. IV site intact and patent. Safety maintained. Will endorse to day shift.
[2021-11-15] MEDS: NORMAL SALINE FLUSH 10 ML DISP.SYRIN IV SCH ×3 (06:20→22:22)
[2021-11-15] MEDS: BLOOD SUGAR DIAGNOSTIC 1 EACH STRIP VI SCH ×4 (06:31→20:20)
[2021-11-15] MEDS: IPRATROPIUM BROMIDE 0.5 MG/2.5 ML NEBU NEB SCH ×4 (07:52→19:27)
[2021-11-15] MEDS: ALBUTEROL SULFATE 2.5 MG/ 0.5 ML NEBU NEB SCH ×4 (07:52→19:27)
[2021-11-15] MEDS: ACETYLCYSTEINE 10% 4ML VIAL NEB SCH ×3 (07:52→19:27)
[2021-11-15] MEDS: DOXYCYCLINE HYCLATE 100 MG TABLET PO SCH ×2 (09:42→20:20)
[2021-11-15] MEDS: QUETIAPINE FUMARATE 25 MG TABLET PO SCH ×4 (09:42→20:19)
[2021-11-15] MEDS: LOSARTAN POTASSIUM 25 MG TABLET PO SCH (09:42)
[2021-11-15] MEDS: METOPROLOL TARTRATE 50 MG TABLET PO SCH ×2 (09:42→20:19)
[2021-11-15] MEDS: ASPIRIN 81 MG TAB.CHEW PO SCH (09:42)
[2021-11-15] MEDS: PANTOPRAZOLE ORAL SUSPENSION 40 MG SUSPDR.PKT GT SCH (09:42)
[2021-11-15] MEDS: INSULIN GLARGINE,HUM 300 UNITS/3 ML CARTRIDGE SQ SCH ×2 (09:53→20:13)
[2021-11-15 13:59] VITALS: BP 124/70
[2021-11-15 14:02] VITALS: BP 119/73
[2021-11-15] MEDS: ZIPRASIDONE MESYLATE 20 MG VIAL IM PRN (15:03)
[2021-11-15 15:19] LABS: HEMATOCRIT 33.4 % (36.7-47.1); MEAN CORPUSCULAR HEMOGLOBIN 30.9 uug (23.8-33.4); MEAN CORPUSCULAR VOLUME 91.8 fL (73.0-96.2); PLATELET COUNT (AUTO) 56 K/uL (152-348)
[2021-11-15 15:21] LABS: CREATININE 1.7 mg/dL (0.6-1.3); POTASSIUM 3.9 mmol/L (3.5-5.1)
[2021-11-15 15:30] LABS: MAGNESIUM 1.7 mg/dL (1.8-2.4); PHOSPHOROUS 4.4 mg/dL (2.5-4.9)
[2021-11-15 15:38] VITALS: BP 100/58
--- NOTE | 2021-11-15 18:13 | NUR ---
complaining he does not want puree diet. advanced to soft 60gm carb for bkfst in am. lori po intake no choking or coughing noted while eating
[2021-11-15] MEDS: INSULIN REGULAR, HUMAN 300 UNITS/3 ML VIAL SQ PRN ×2 (18:17→20:19)
--- NOTE | 2021-11-15 19:35 | NUR ---
Received patient in bed asleep but arousable, on tele monitor, sinus rhythm hr 88. Patient alert but uncooperative with care, with refused to take medications, refused to suction when coughing, no sob no chest pain, on 2 liter nc, sat 94%, on bariatric bed, arias cath patent, cont to monitor.
[2021-11-15] MEDS: ATORVASTATIN 40 MG TABLET PO SCH (20:19)
[2021-11-15 20:29] VITALS: BP 101/62
--- NOTE | 2021-11-16 00:42 | NUR ---
RT put Bipap machine, at first the patient agree, but now patient does not want it, removes it, stated he cannot bread, patient was put on oxygen 2liter nc, notify RT.
[2021-11-16 00:52] VITALS: BP 115/65
[2021-11-16] MEDS: ZIPRASIDONE MESYLATE 20 MG VIAL IM PRN (03:11)
--- NOTE | 2021-11-16 03:12 | NUR ---
Patient increase agitation, restless in bed, multiple attempt to climb out of bed, risk for fall and injury, patient unredirectable despite multiple attempts. looking for his , and breakfast, gave food and water, kept clean and dry, but not effective, given Geodon 10mg IM for agitation, cont to monitor.
[2021-11-16] MEDS: BLOOD SUGAR DIAGNOSTIC 1 EACH STRIP VI SCH ×4 (05:32→21:36)
[2021-11-16] MEDS: NORMAL SALINE FLUSH 10 ML DISP.SYRIN IV SCH ×3 (06:42→21:44)
[2021-11-16 06:51] LABS: HEMATOCRIT 34.8 % (36.7-47.1); MEAN CORPUSCULAR HEMOGLOBIN 29.8 uug (23.8-33.4); MEAN CORPUSCULAR VOLUME 91.1 fL (73.0-96.2)
[2021-11-16 06:59] LABS: CREATININE 1.5 mg/dL (0.6-1.3); POTASSIUM 4.2 mmol/L (3.5-5.1)
[2021-11-16 07:09] LABS: MAGNESIUM 1.7 mg/dL (1.8-2.4); PLATELET COUNT (AUTO) 46 K/uL (152-348)
--- NOTE | 2021-11-16 07:24 | NUR ---
Patient latest 46 notify yesica antoine.
--- NOTE | 2021-11-16 07:25 | NUR ---
Patient latest platelet 46.
--- NOTE | 2021-11-16 08:04 | NUR ---
Awake, alert, oriented x 3, forgetful, angry, uncooperative, repeated request for breakfast. 1:1 Sitter at bedside for safety. O2 at 2L/NC. Repositioned in bed comfortably.
[2021-11-16] MEDS: ALBUTEROL SULFATE 2.5 MG/ 0.5 ML NEBU NEB SCH ×4 (08:26→20:03)
[2021-11-16] MEDS: ACETYLCYSTEINE 10% 4ML VIAL NEB SCH ×3 (08:26→20:04)
[2021-11-16] MEDS: IPRATROPIUM BROMIDE 0.5 MG/2.5 ML NEBU NEB SCH ×4 (08:26→20:03)
[2021-11-16] MEDS: ASPIRIN 81 MG TAB.CHEW PO SCH (08:51)
[2021-11-16] MEDS: PANTOPRAZOLE ORAL SUSPENSION 40 MG SUSPDR.PKT GT SCH (08:51)
[2021-11-16] MEDS: MAGNESIUM SULFATE/D5W 100 ML IV SCH ×2 (08:51→10:10)
[2021-11-16] MEDS: DOXYCYCLINE HYCLATE 100 MG TABLET PO SCH ×2 (08:52→21:35)
[2021-11-16] MEDS: QUETIAPINE FUMARATE 25 MG TABLET PO SCH ×4 (08:52→21:35)
[2021-11-16] MEDS: METOPROLOL TARTRATE 50 MG TABLET PO SCH ×2 (08:56→21:35)
[2021-11-16] MEDS: LOSARTAN POTASSIUM 25 MG TABLET PO SCH (08:57)
[2021-11-16] MEDS: INSULIN GLARGINE,HUM 300 UNITS/3 ML CARTRIDGE SQ SCH ×2 (08:58→21:44)
[2021-11-16 12:00] VITALS: BP 107/59
[2021-11-16] MEDS: INSULIN REGULAR, HUMAN 300 UNIT/3 ML VIAL SQ PRN ×2 (12:17→17:18)
--- NOTE | 2021-11-16 12:30 | NUR ---
at bedside. Repositioned to right side as requested. Calm and cooperative
[2021-11-16 16:00] VITALS: BP 101/64
--- NOTE | 2021-11-16 18:07 | NUR ---
Ate fairly. Repositioned comfortably.
[2021-11-16 20:09] VITALS: BP 103/56
--- NOTE | 2021-11-16 21:00 | NUR ---
PATIENT IN ROOM AWAKE ,ALERT ABLE TO VERBALIZED NEEDS ,NO RESPIRATORY DISTRESS NOTED,PATIENT WATCHING TV. SITTER AT BEDSIDE FOR SAFETY .
--- NOTE | 2021-11-16 21:15 | NUR ---
RESPIRATORY THERAPIST PLACED PATIENT ON BIPAP ,EDUCATED TO KEEP IT ON .
--- NOTE | 2021-11-16 21:15 | NUR ---
FINGERSTICK WAS 124 MG/DL ,LANTUS INSULIN FOR HS GIVEN SEE EMAR .
[2021-11-16] MEDS: ATORVASTATIN 40 MG TABLET PO SCH (21:35)
--- NOTE | 2021-11-16 21:36 | NUR ---
DUE MEDICATION GIVEN AND PATIENT TOLERATED WITH ORANGE JUICE PATIENT ABLE TO SWALLOW THE PILLS A WHOLE .
[2021-11-17 00:55] VITALS: BP 119/73
--- NOTE | 2021-11-17 01:25 | NUR ---
SECURITY AT BEDSIDE PATIENT VERY AGITATED ,RESTLESS AND SCREAMING AT SITTER . GIVEN PRN GEODON 10 MG IM .
[2021-11-17] MEDS: ZIPRASIDONE MESYLATE 20 MG VIAL IM PRN (01:26)
[2021-11-17 04:00] VITALS: BP 116/76
[2021-11-17] MEDS: NORMAL SALINE FLUSH 10 ML DISP.SYRIN IV SCH ×3 (05:37→21:05)
[2021-11-17] MEDS: BLOOD SUGAR DIAGNOSTIC 1 EACH STRIP VI SCH ×4 (06:34→21:00)
[2021-11-17 06:49] LABS: HEMATOCRIT 33.6 % (36.7-47.1); MEAN CORPUSCULAR HEMOGLOBIN 30.4 uug (23.8-33.4); MEAN CORPUSCULAR VOLUME 92.4 fL (73.0-96.2)
[2021-11-17 06:56] LABS: PLATELET COUNT (AUTO) 45 K/uL (152-348)
[2021-11-17] MEDS: ACETYLCYSTEINE 10% 4ML VIAL NEB SCH ×3 (07:16→19:23)
[2021-11-17] MEDS: IPRATROPIUM BROMIDE 0.5 MG/2.5 ML NEBU NEB SCH ×4 (07:16→19:23)
[2021-11-17] MEDS: ALBUTEROL SULFATE 2.5 MG/ 0.5 ML NEBU NEB SCH ×4 (07:16→19:23)
[2021-11-17 07:21] LABS: CREATININE 1.1 mg/dL (0.6-1.3); POTASSIUM 4.3 mmol/L (3.5-5.1)
[2021-11-17] MEDS ORDERED: ACETAMINOPHEN 650 MG/20.3 ML LIQUID UDC PO PRN (07:54)
[2021-11-17 08:00] VITALS: BP 135/83
[2021-11-17] MEDS: QUETIAPINE FUMARATE 25 MG TABLET PO SCH ×4 (08:00→20:55)
[2021-11-17] MEDS: DOXYCYCLINE HYCLATE 100 MG TABLET PO SCH (08:00)
[2021-11-17] MEDS: ASPIRIN 81 MG TAB.CHEW PO SCH (08:00)
[2021-11-17] MEDS: LOSARTAN POTASSIUM 25 MG TABLET PO SCH (08:00)
[2021-11-17] MEDS: INSULIN GLARGINE,HUM 300 UNITS/3 ML CARTRIDGE SQ SCH ×2 (08:18→21:04)
[2021-11-17] MEDS: METOPROLOL TARTRATE 50 MG TABLET PO SCH ×2 (08:19→20:56)
[2021-11-17] MEDS: PANTOPRAZOLE ORAL SUSPENSION 40 MG SUSPDR.PKT PO SCH (08:19)
[2021-11-17] MEDS: INSULIN REGULAR, HUMAN 300 UNIT/3 ML VIAL SQ PRN ×2 (12:01→16:53)
[2021-11-17 12:14] VITALS: BP 111/75
--- NOTE | 2021-11-17 19:00 | NUR ---
Report received. Patient is awake, A/Ox3, NAD, VSS, able to make needs known with assistance. On NC @2LPM. NSR on the monitor. R femoral TLC SL. Huitron catheter draining well to gravity. Sitter at bedside for safety precaution. Will continue to monitor closely.
[2021-11-17 20:00] VITALS: BP 116/63
[2021-11-17] MEDS: ATORVASTATIN 40 MG TABLET PO SCH (20:54)
--- NOTE | 2021-11-17 23:00 | NUR ---
Placed on Bipap machine c/o RT Andrey. Will continue to monitor closely.
[2021-11-18] VITALS: BP 107/59
--- NOTE | 2021-11-18 | NUR ---
Patient removed bipap mask. Placed bipap mask on. Educated patient importance of it x3. Verbalized understanding. Will continue to monitor closely.
[2021-11-18] MEDS: ZIPRASIDONE MESYLATE 20 MG VIAL IM PRN ×2 (00:26→22:44)
--- NOTE | 2021-11-18 00:30 | NUR ---
Patient is agitated, restless, screaming to sitter. Geodon IM PRN given as ordered.
--- NOTE | 2021-11-18 01:05 | NUR ---
Pt has forcefully removed himself off of BIPAP. Pt is now back on 2LNC. RN SM aware and notified.
--- NOTE | 2021-11-18 01:10 | NUR ---
Patient is agitated, restless, yelling and kept on removing bipap mask and machine several times. Bipap machine removed and placed on NC @2LPM c/o RT Andrey. Will continue to monitor closely.
[2021-11-18 04:00] VITALS: BP 129/75
[2021-11-18] MEDS: NORMAL SALINE FLUSH 10 ML DISP.SYRIN IV SCH ×3 (05:05→22:45)
[2021-11-18] MEDS: BLOOD SUGAR DIAGNOSTIC 1 EACH STRIP VI SCH ×4 (06:30→20:19)
[2021-11-18] MEDS: ACETYLCYSTEINE 10% 4ML VIAL NEB SCH ×3 (07:10→19:28)
[2021-11-18] MEDS: ALBUTEROL SULFATE 2.5 MG/ 0.5 ML NEBU NEB SCH ×4 (07:10→19:28)
[2021-11-18] MEDS: IPRATROPIUM BROMIDE 0.5 MG/2.5 ML NEBU NEB SCH ×4 (07:10→19:28)
[2021-11-18 07:26] LABS: CREATININE 1.1 mg/dL (0.6-1.3); POTASSIUM 4.8 mmol/L (3.5-5.1)
[2021-11-18 07:28] VITALS: BP 116/77
[2021-11-18 07:58] LABS: HEMATOCRIT 34.1 % (36.7-47.1); MEAN CORPUSCULAR HEMOGLOBIN 30.7 uug (23.8-33.4); MEAN CORPUSCULAR VOLUME 92.5 fL (73.0-96.2)
[2021-11-18 08:02] LABS: ABG BASE EXCESS 1.1 mmol/L; ABG HCO3 26.9 mmol/L; ABG PCO2 47.6 mmHg (35.0-45.0); ABG PO2 77.4 mmHg (75.0-100.0); ABG SITE RIGHT RADIAL; ABG TOTAL HEMOGLOBIN 12.2 G/dL (13.5-18.0); COHb 0.3 % (0.5-1.5); MetHb 0.2 % (0.0-1.5); O2Hb 94.5 % (94.0-97.0); VENT MODE Nasal Cannula
[2021-11-18] MEDS: LOSARTAN POTASSIUM 25 MG TABLET PO SCH (08:32)
[2021-11-18] MEDS: METOPROLOL TARTRATE 50 MG TABLET PO SCH ×2 (08:34→21:14)
[2021-11-18] MEDS: QUETIAPINE FUMARATE 25 MG TABLET PO SCH ×4 (08:34→20:19)
[2021-11-18] MEDS: PANTOPRAZOLE ORAL SUSPENSION 40 MG SUSPDR.PKT PO SCH (08:34)
[2021-11-18] MEDS: ASPIRIN 81 MG TAB.CHEW PO SCH (08:34)
[2021-11-18] MEDS: INSULIN GLARGINE,HUM 300 UNITS/3 ML CARTRIDGE SQ SCH ×2 (08:37→20:21)
[2021-11-18 10:37] LABS: PLATELET COUNT (AUTO) 48 K/uL (152-348)
[2021-11-18] MEDS ORDERED: Blood Sugar Diagnostic VI (11:34)
[2021-11-18] MEDS ORDERED: ATOR20TA PO (11:34)
[2021-11-18] MEDS ORDERED: ALBU2.5V13 NEB (11:34)
[2021-11-18] MEDS ORDERED: METO50TA16 PO (11:34)
[2021-11-18] MEDS ORDERED: LOSA25TA27 PO (11:34)
[2021-11-18] MEDS ORDERED: IPRA0.2S6 NEB (11:34)
[2021-11-18] MEDS ORDERED: QUET25TA36 PO (11:34)
[2021-11-18] MEDS ORDERED: ZIPR20VI IM (11:34)
[2021-11-18] MEDS ORDERED: Insulin Glargine,Hum SQ ×2 (11:34)
[2021-11-18] MEDS ORDERED: INSU100V28 SQ ×2 (11:34)
[2021-11-18] MEDS ORDERED: ACET100V5 NEB (11:34)
[2021-11-18 12:00] VITALS: BP 121/69
[2021-11-18] MEDS: INSULIN REGULAR, HUMAN 300 UNIT/3 ML VIAL SQ PRN ×2 (12:41→17:39)
[2021-11-18 16:00] VITALS: BP 114/63
[2021-11-18 17:13] LABS: BAND % (MANUAL) 1 % (0-10); EOSINOPHILS % (MANUAL) 1 % (0-8); LYMPHOCYTES % (MANUAL) 28 % (20-40); MONOCYTES % (MANUAL) 5 % (2-10); NEUTROPHILS % (MANUAL) 65 % (42-75)
[2021-11-18 20:00] VITALS: BP 109/67
[2021-11-18] MEDS: ATORVASTATIN 20 MG TABLET PO SCH (20:19)
[2021-11-18] MEDS: INSULIN REGULAR, HUMAN 300 UNITS/3 ML VIAL SQ PRN (20:22)
[2021-11-18] MEDS ORDERED: ATORVASTATIN 40 MG TABLET PO SCH (21:00)
--- NOTE | 2021-11-18 22:30 | NUR ---
Received report from Chelsi Hernadez, patient in bed with 1;1 sitter for safety, climbs oob risk for fall and injury. Patient has episode of yelling and screaming, RN given Geodon IM for episode of yelling and screaming for no reason, kept clean and dry. Patient on 2 liters oxygen, cont to monitor.
[2021-11-19 04:28] VITALS: BP 93/49
[2021-11-19 07:16] LABS: HEMATOCRIT 30.4 % (36.7-47.1); MEAN CORPUSCULAR HEMOGLOBIN 30.7 uug (23.8-33.4); MEAN CORPUSCULAR VOLUME 91.3 fL (73.0-96.2)
[2021-11-19] MEDS: NORMAL SALINE FLUSH 10 ML DISP.SYRIN IV SCH ×3 (07:19→22:00)
--- NOTE | 2021-11-19 07:30 | NUR ---
Received patient in bed. Awake and alert, patient is oriented times 2-3. No sign of distress noted. Patient has a 1:1 sitter. Safety precautions are in place. Will continue to monitor.
[2021-11-19] MEDS: ALBUTEROL SULFATE 2.5 MG/ 0.5 ML NEBU NEB SCH ×4 (07:35→19:52)
[2021-11-19] MEDS: ACETYLCYSTEINE 10% 4ML VIAL NEB SCH ×2 (07:35→14:50)
[2021-11-19] MEDS: IPRATROPIUM BROMIDE 0.5 MG/2.5 ML NEBU NEB SCH ×4 (07:35→19:51)
[2021-11-19 07:39] LABS: PLATELET COUNT (AUTO) 43 K/uL (152-348)
[2021-11-19] MEDS: BLOOD SUGAR DIAGNOSTIC 1 EACH STRIP VI SCH ×4 (07:42→20:48)
[2021-11-19 07:47] LABS: CREATININE 1.2 mg/dL (0.6-1.3); POTASSIUM 4.8 mmol/L (3.5-5.1)
[2021-11-19] MEDS: QUETIAPINE FUMARATE 25 MG TABLET PO SCH ×4 (08:37→20:44)
[2021-11-19] MEDS: LOSARTAN POTASSIUM 25 MG TABLET PO SCH (09:00)
[2021-11-19] MEDS: METOPROLOL TARTRATE 50 MG TABLET PO SCH ×2 (09:00→20:44)
[2021-11-19] MEDS: INSULIN REGULAR, HUMAN 300 UNIT/3 ML VIAL SQ PRN ×3 (09:05→17:49)
[2021-11-19] MEDS: INSULIN GLARGINE,HUM 300 UNITS/3 ML CARTRIDGE SQ SCH ×2 (10:07→20:49)
[2021-11-19 11:52] VITALS: BP 96/58
[2021-11-19 15:32] VITALS: BP 101/50
[2021-11-19] MEDS: INSULIN REGULAR, HUMAN 300 UNITS/3 ML VIAL SQ PRN ×2 (17:27→20:51)
[2021-11-19] MEDS: MORPHINE SULFATE 2 MG/1 ML DISP.SYRIN IV PRN (17:28)
--- NOTE | 2021-11-19 18:42 | NUR ---
Patient left in bed with at bedside. All medications given as ordered. Discharge order available for patient, still awaiting right bed for placement. Safety precautions are in place. Will endorse to the oncoming nurse.
[2021-11-19 20:00] VITALS: BP 103/66
--- NOTE | 2021-11-19 20:00 | NUR ---
Received patient in bed. Awake, alert, oriented, however, noted to have episodes of confusion. 1:1 sitter at bedside. On 2L O2, saturating at 90%, showing no signs of SOB. With 3 lumen, femoral catheter, with 2 ports working. With Huitron catheter, draining yellow colored urine with sediments. Possible discharge to [facility] tomorrow, once bed is available. Safety precautions initiated. Will continue to monitor.
[2021-11-19] MEDS: ATORVASTATIN 20 MG TABLET PO SCH (20:44)
[2021-11-19] MEDS: ZIPRASIDONE MESYLATE 20 MG VIAL IM PRN (23:51)
--- NOTE | 2021-11-19 23:55 | NUR ---
Patient was noted to be agitated and yelling incoherently. Screams and asks for help. PRN Geodon IM given, to reduce agitation. Will continue to monitor.
--- NOTE | 2021-11-20 00:25 | NUR ---
PATIENT DOING OK, NEB RX X 1 WITH AEROSOL MASK, THEN PT ON O2 @ 2L/M NC, CALM, THEN ABOUT 23;35, GOING TO PATIENTS ROOM, PT YELLING , SAYING HE IS SCARED, TRYING TO CALM PT DOWN, PT REFUSING TO BE ON BI/PAP MACHINE , PT ON 2L/M NC, THEN GOING BACK TO SLEEP, WITH SITTER IN ROOM . Mario DESAI RCP Addendum: 11/20/21 at 0029 by OPAL DESAI RT Amended: Links added.
[2021-11-20] MEDS: ACETYLCYSTEINE 10% 4ML VIAL NEB SCH ×4 (01:13→19:25)
[2021-11-20 04:00] VITALS: BP 110/72
--- NOTE | 2021-11-20 05:29 | NUR ---
Patient slept through the night with frequent episodes of incoherent yelling in his sleep, patient is noted to have PTSD. On 2L O2, via NC, saturating at 96%. With right femoral portacath, lines flushed. With arias catheter draining, 800cc of urine. No acute distress noted at this time. All needs attended to and met. Safety precautions maintained. Will endorse to day shift.
[2021-11-20] MEDS: NORMAL SALINE FLUSH 10 ML DISP.SYRIN IV SCH ×3 (06:29→21:40)
[2021-11-20] MEDS: BLOOD SUGAR DIAGNOSTIC 1 EACH STRIP VI SCH ×4 (06:29→20:13)
[2021-11-20] MEDS: IPRATROPIUM BROMIDE 0.5 MG/2.5 ML NEBU NEB SCH ×4 (07:22→19:24)
[2021-11-20] MEDS: ALBUTEROL SULFATE 2.5 MG/ 0.5 ML NEBU NEB SCH ×4 (07:22→19:24)
[2021-11-20 08:20] VITALS: BP 117/82
--- NOTE | 2021-11-20 09:00 | NUR ---
Titrated pt form 2L to 1L NC. pt saturating is 95-97%. Vitals stable, no complaints of pain, no signs of acute distress. Sitter at bedisde, comfort measures provided, call light within reach. Will continue to monitor.
[2021-11-20] MEDS: METOPROLOL TARTRATE 25 MG TABLET PO SCH ×2 (09:23→20:12)
[2021-11-20] MEDS: QUETIAPINE FUMARATE 25 MG TABLET PO SCH ×4 (09:23→20:12)
[2021-11-20] MEDS: INSULIN GLARGINE,HUM 300 UNITS/3 ML CARTRIDGE SQ SCH ×2 (09:28→20:19)
[2021-11-20] MEDS: INSULIN REGULAR, HUMAN 300 UNIT/3 ML VIAL SQ PRN ×2 (11:57→16:50)
[2021-11-20 12:08] VITALS: BP 123/67
[2021-11-20 16:00] VITALS: BP 112/74
--- NOTE | 2021-11-20 19:30 | NUR ---
Patient screaming that his left arm is painful from the bruising. Requesting pain medication. AAO to person and place with some forgetfulness on time and situation. Morphine provided as ordered. 0ne on one sitter at bed side. Ice pack also provided with help. Triple lumen central catheter in place to right groin, 2 lumen is patent and intact. Huitron catheter draining to gravity. All needs met, call light within reach.
[2021-11-20] MEDS: MORPHINE SULFATE 2 MG/1 ML DISP.SYRIN IV PRN (19:44)
[2021-11-20] MEDS: ATORVASTATIN 20 MG TABLET PO SCH (20:13)
[2021-11-20 20:20] VITALS: BP 149/82
[2021-11-20] MEDS: INSULIN REGULAR, HUMAN 300 UNITS/3 ML VIAL SQ PRN (20:20)
[2021-11-20] MEDS: ZIPRASIDONE MESYLATE 20 MG VIAL IM PRN (21:59)
--- NOTE | 2021-11-20 22:00 | NUR ---
Patient is screaming, eyes closed, statements are inappropriate, when offered assistance he does not ask for anything. Hydration & repositioning provided. Also, environment made quiet with dim lighting. patient requests something to help him sleep and states he will stop screaming. Geodon 10mg IM provided on right buttocks, tolerates IM injection well.
[2021-11-21 06:14] LABS: MEAN CORPUSCULAR VOLUME 92.3 fL (73.0-96.2)
[2021-11-21 06:16] LABS: HEMATOCRIT 32.7 % (36.7-47.1); MEAN CORPUSCULAR HEMOGLOBIN 30.3 uug (23.8-33.4)
[2021-11-21] MEDS: BLOOD SUGAR DIAGNOSTIC 1 EACH STRIP VI SCH ×4 (06:16→21:05)
[2021-11-21] MEDS: NORMAL SALINE FLUSH 10 ML DISP.SYRIN IV SCH ×3 (06:16→22:05)
[2021-11-21 06:34] LABS: CREATININE 1.2 mg/dL (0.6-1.3); MAGNESIUM 1.7 mg/dL (1.8-2.4); PHOSPHOROUS 3.6 mg/dL (2.5-4.9); POTASSIUM 4.7 mmol/L (3.5-5.1)
[2021-11-21 06:45] LABS: PLATELET COUNT (AUTO) 46 K/uL (152-348)
[2021-11-21] MEDS: ACETYLCYSTEINE 10% 4ML VIAL NEB SCH (07:50)
[2021-11-21] MEDS: ALBUTEROL SULFATE 2.5 MG/ 0.5 ML NEBU NEB SCH ×4 (07:50→19:29)
[2021-11-21] MEDS: IPRATROPIUM BROMIDE 0.5 MG/2.5 ML NEBU NEB SCH ×4 (07:50→19:29)
--- NOTE | 2021-11-21 07:50 | NUR ---
Pt has critical lab value of Platelets 46. notified and aware.
[2021-11-21] MEDS: QUETIAPINE FUMARATE 25 MG TABLET PO SCH ×4 (08:12→20:57)
[2021-11-21] MEDS: METOPROLOL TARTRATE 25 MG TABLET PO SCH ×2 (08:12→21:01)
[2021-11-21] MEDS: INSULIN GLARGINE,HUM 300 UNITS/3 ML CARTRIDGE SQ SCH ×2 (08:15→21:06)
[2021-11-21] MEDS: MAGNESIUM SULFATE/D5W 100 ML IV SCH ×2 (10:28→11:29)
[2021-11-21 11:07] VITALS: BP 143/81
[2021-11-21] MEDS: INSULIN REGULAR, HUMAN 300 UNITS/3 ML VIAL SQ PRN ×2 (12:03→21:07)
[2021-11-21 15:07] VITALS: BP 125/70
[2021-11-21] MEDS: INSULIN REGULAR, HUMAN 300 UNIT/3 ML VIAL SQ PRN (16:45)
[2021-11-21] MEDS: MORPHINE SULFATE 2 MG/1 ML DISP.SYRIN IV PRN (18:13)
--- NOTE | 2021-11-21 18:24 | NUR ---
Pt was yelling out, complaining of pain. Administered pain medication as ordered. Reoriented pt and educated not to yell out. He verbalized understanding and apologized for yelling out. He stated he was upset with and was yelling on the phone. Helped pt out of bed to sit in wheel chair numerous times throughout the day. Pt is able to ambulate to wheel chair with 2 person assist out of bed. Comfort measures provided, call light within reach. Will endorse to home health care coordinator.
--- NOTE | 2021-11-21 19:30 | NUR ---
Received patient in bed, in semi fowlers position. Family at bedside. AAO x4. C/O mild pain at this time, states Dilaudid is effective for pain. Wound care provided to perirectal abscess around 5pm, will provide treatment later this shift. Huitron catheter draining darlin urine to gravity. Midline in place to right upper arm, patent and intact. Infusing NS at 75cc/hr. Safety measures initiated, call light within reach. Addendum: 11/22/21 at 0245 by CONRADO LAURENT RN Wrong patient
[2021-11-21 20:45] VITALS: BP 115/61
[2021-11-21] MEDS: ATORVASTATIN 20 MG TABLET PO SCH (20:57)
[2021-11-21] MEDS: ZIPRASIDONE MESYLATE 20 MG VIAL IM PRN (22:22)
[2021-11-22] MEDS: NORMAL SALINE FLUSH 10 ML DISP.SYRIN IV SCH ×2 (05:36→14:04)
[2021-11-22] MEDS: BLOOD SUGAR DIAGNOSTIC 1 EACH STRIP VI SCH ×4 (06:30→20:37)
[2021-11-22 07:07] LABS: HEMATOCRIT 32.7 % (36.7-47.1); MEAN CORPUSCULAR HEMOGLOBIN 30.4 uug (23.8-33.4); MEAN CORPUSCULAR VOLUME 92.4 fL (73.0-96.2); PLATELET COUNT (AUTO) 50 K/uL (152-348)
[2021-11-22] MEDS: ALBUTEROL SULFATE 2.5 MG/ 0.5 ML NEBU NEB SCH ×4 (07:24→20:57)
[2021-11-22] MEDS: IPRATROPIUM BROMIDE 0.5 MG/2.5 ML NEBU NEB SCH ×4 (07:24→20:57)
[2021-11-22 07:28] LABS: CREATININE 1.1 mg/dL (0.6-1.3); POTASSIUM 4.9 mmol/L (3.5-5.1)
[2021-11-22 07:40] LABS: MAGNESIUM 2.2 mg/dL (1.8-2.4); PHOSPHOROUS 4.4 mg/dL (2.5-4.9)
[2021-11-22] MEDS: QUETIAPINE FUMARATE 25 MG TABLET PO SCH ×4 (08:26→20:30)
[2021-11-22] MEDS: METOPROLOL TARTRATE 25 MG TABLET PO SCH ×2 (08:26→20:37)
[2021-11-22] MEDS: INSULIN GLARGINE,HUM 300 UNITS/3 ML CARTRIDGE SQ SCH ×2 (08:32→20:50)
[2021-11-22] MEDS: INSULIN REGULAR, HUMAN 300 UNIT/3 ML VIAL SQ PRN ×3 (08:36→16:50)
[2021-11-22 09:28] LABS: ABG BASE EXCESS 4.4 mmol/L; ABG HCO3 30.2 mmol/L; ABG PCO2 50.1 mmHg (35.0-45.0); ABG PH 7.398 (7.350-7.450); ABG PO2 67.2 mmHg (75.0-100.0); ABG SITE LEFT RADIAL; MetHb 0.2 % (0.0-1.5); O2Hb 91.8 % (94.0-97.0); VENT MODE Room Air
--- NOTE | 2021-11-22 13:21 | NUR ---
Patient to be discharged to [facility] @ 1800. Contacted Dr. Mart regarding patient's BIPAP. Patient does not use BIPAP at night and saturates at 94-95% on Room Air. Facility does not have bipap machine. Dr. Mart suggests for out patient sleep study and then order as indicated.
--- NOTE | 2021-11-22 16:16 | NUR ---
Report given to Leslie BARNES at [facility].
--- NOTE | 2021-11-22 19:19 | NUR ---
Upon initial rounds. Patient screaming ,yelling and was agitated.Approached patient in calm manner. Re-assurance rendered.Patient stated he was supposed to be picked up and transferred to [facility]. Repositioned patient with3 person assist. Stated he wants his to come first.Spoke to over the phone regarding patient's status.Called AM west to follow up about the ETA. Patient and made aware.
[2021-11-22] MEDS: ZIPRASIDONE MESYLATE 20 MG VIAL IM PRN (19:43)
[2021-11-22] MEDS: MORPHINE SULFATE 2 MG/1 ML DISP.SYRIN IV PRN ×2 (19:56→20:16)
[2021-11-22] MEDS: ATORVASTATIN 20 MG TABLET PO SCH (20:30)
[2021-11-22 20:37] VITALS: BP 128/84
[2021-11-22] MEDS: INSULIN REGULAR, HUMAN 300 UNITS/3 ML VIAL SQ PRN (20:51)
--- NOTE | 2021-11-22 21:00 | NUR ---
Patient picked by BYRON shahid with 4 crew.Due meds given. All discharged instruction and belongings were given.F/c in place with 400 cc output.VsS upon discharged.Patient in Ra.No acute distress noted.
== END 2021-11-22 21:00 | DRG 720 ==
LOC: ER 20:32 → CCU 23:59 → DOU 11-14 08:55 → TELE-TD3 11-14 09:43 → MEDSURG3 11-18 11:32
PROC: 5A1955Z Respiratory Ventilation, Greater than 96 Consecutive Hours (ICD-10-PCS; principal; 2021-10-16)
PROC: 0DH673Z Insertion of Infusion Device into Stomach, Via Natural or Artificial Opening (ICD-10-PCS; 2021-10-16)
PROC: 02HV33Z Insertion of Infusion Device into Superior Vena Cava, Percutaneous Approach (ICD-10-PCS; 2021-10-16)
PROC: 0BH17EZ Insertion of Endotracheal Airway into Trachea, Via Natural or Artificial Opening (ICD-10-PCS; 2021-10-16)
PROC: 5A09357 Assistance with Respiratory Ventilation, Less than 24 Consecutive Hours, Continuous Positive Airway Pressure (ICD-10-PCS; 2021-10-23)
DX: A41.9 Sepsis, unspecified organism (principal); N17.0 Acute kidney failure with tubular necrosis; D61.818 Other pancytopenia; J96.01 Acute respiratory failure with hypoxia; R57.9 Shock, unspecified; J96.02 Acute respiratory failure with hypercapnia; I50.31 Acute diastolic (congestive) heart failure; R65.21 Severe sepsis with septic shock; J18.9 Pneumonia, unspecified organism; E87.1 Hypo-osmolality and hyponatremia; D69.6 Thrombocytopenia, unspecified; E46 Unspecified protein-calorie malnutrition; I21.A1 Myocardial infarction type 2; E66.2 Morbid (severe) obesity with alveolar hypoventilation; E87.4 Mixed disorder of acid-base balance; I08.2 Rheumatic disorders of both aortic and tricuspid valves; Z68.43 Body mass index [BMI] 50.0-59.9, adult; E87.5 Hyperkalemia; E11.65 Type 2 diabetes mellitus with hyperglycemia; E78.5 Hyperlipidemia, unspecified; G47.30 Sleep apnea, unspecified; R79.89 Other specified abnormal findings of blood chemistry; D75.89 Other specified diseases of blood and blood-forming organs; I11.0 Hypertensive heart disease with heart failure; J98.11 Atelectasis; K70.30 Alcoholic cirrhosis of liver without ascites; I25.10 Atherosclerotic heart disease of native coronary artery without angina pectoris; Z78.1 Physical restraint status; Z91.19 Patient's noncompliance with other medical treatment and regimen; Z88.1 Allergy status to other antibiotic agents; Z20.822 Contact with and (suspected) exposure to COVID-19; E87.0 Hyperosmolality and hypernatremia; Z86.74 Personal history of sudden cardiac arrest
CPT/HCPCS: 36415; 36600; 51702; 70030-TC; 70450; 71045; 71250; 72125; 82803; 83605; 83735; 84100; 84443; 84478; 85025; 85730; 86140; 87040; 87070; 87077; 87086; 93005; 93307; 94002; 94003; 94640; 94660; 94664; 97161; A4217; A4663; A6209; C9113; G0378; G0480; J0171; J0360; J0610; J1200; J1265; J1630; J1644; J1650; J1815; J1940; J1956; J2060; J2185; J2270; J2405; J3475; J3480; J3486; J3490; J3590; J7030; J7050; J7070; P9047; U0003